=== PATIENT | female | born 1960 | race Caucasian/White ===

== ENCOUNTER 2020-02-20 13:51 | Inpatient (IN) | payer OTHER ==
[~2020-02-20] VITALS: Ht 170.2 cm; Wt 95.7 kg
[~2020-02-20 13:51] MED LIST: GLIPIZIDE10 MG PO; LISINOPRIL20 MG ORAL; METFORMIN HCL500 M1 ORAL; METFORMIN HYD1000 GM MC; ONDANSETRON ODT4 MG BC; PROTONIX40 M2 GT
[2020-02-20 14:15] LABS: BASOPHILS % (AUTO) 0.8 % (0.0-2.0); EOSINOPHILS % (AUTO) 0.4 % (0.0-3.0); HEMATOCRIT 45.6 % (37.0-47.0); HEMOGLOBIN 15.2 G/DL (12.0-16.0); LYMPHOCYTES % (AUTO) 26.3 % (20.0-45.0); MEAN CORPUSCULAR VOLUME 87 FL (80-99); MONOCYTES % (AUTO) 6.1 % (1.0-10.0); NEUTROPHILS % (AUTO) 66.5 % (45.0-75.0); PLATELET COUNT 405 K/UL (150-450); RED BLOOD COUNT 5.22 M/UL (4.20-5.40); RED CELL DISTRIBUTION WIDTH 12.1 % (11.6-14.8); WHITE BLOOD COUNT 8.5 K/UL (4.8-10.8)
[2020-02-20] MEDS ORDERED: DiphenhydrAMINE 50mg/ml Inj IVP ONE (14:15)
[2020-02-20] MEDS ORDERED: Metoclopramide 10mg/2ml Inj IVP ONE (14:15)
[2020-02-20] MEDS ORDERED: Morphine Sulfate 2mg/ml Inj(IV/IM USE ONLY) IVP ONE (14:15)
--- NOTE | 2020-02-20 14:18 | Emergency Room Report ---
History of Present Illness General Chief Complaint: Nausea, Vomiting, and Diarrhea Source: Patient Present Illness HPI The patient returns to the emergency department with vomiting and diarrhea and abdominal pain. She rates the pain 7/10 at this time. She is passing some blood in her stool. She denies any coffee grounds or hematemesis 2 tabs TID X 2 days, 1 tab TID X 2 days, 1 tab BID X 2 days, 1 tab QD X 2 days she feels dehydrated. She states she has been vomiting and had loose stools since she was discharged on the . She has been taking Zofran and it has not helped. She has not been monitoring her blood sugars. She feels weak and dehydrated. The patient was admitted February 09 for similar complaints. She is a non-insulin- dependent diabetic and had a metabolic acidosis, leukocytosis and hyperglycemia. Her symptoms improved and she was discharged on February 12. Discharge diagnoses: Diabetes mellitus [id number] Possible mild DKA Dehydration Abdominal pain with nausea and vomiting Elevated blood pressure Leukocytosis -improved CT scan 02/10 revealed: Impression: Equivocal mild wall thickening of the mid sigmoid. This could indicate focal colitis if real. No acute process otherwise. Colonic diverticulosis Mild fatty liver Incidental findings of basilar pulmonary atelectasis and mild lumbar levoscoliosis and degenerative spondylosis No fevers, chills, sore throat, chest pain, palpitations, dysuria, shortness of breath, joint pain, rashes, depression, anxiety, visual changes, headache. 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 Patient History Past Medical History: see triage record Social History: Denies: smoking Social History Narrative lives by self Last Menstrual Period: NA Reviewed Nursing Documentation: PMH: Agreed; PSxH: Agreed Nursing Documentation-PM Past Medical History: No Stated History Hx Cardiac Problems: No Hx Diabetes: Yes - recently diagnosed Hx Cancer: No Hx Gastrointestinal Problems: Yes Hx Neurological Problems: No Review of Systems All Other Systems: negative except mentioned in HPI Physical Exam Vital Signs Date Time Temp Pulse Resp B/P (MAP) Pulse Ox O2 Delivery O2 Flow Rate FiO2 7/11/20 13:55 98.6 99 17 156/104 (121) 98 Room Air Sp02 EP Interpretation: reviewed, normal General Appearance: no apparent distress, GCS 15, non-toxic, other - ill appearing Head: normocephalic Eyes: bilateral eye normal inspection, bilateral eye PERRL, bilateral eye EOMI ENT: moist mucus membranes Neck: supple Respiratory: lungs clear, normal breath sounds Cardiovascular #1: regular rate, rhythm Cardiovascular #2: 2+ radial (R) Gastrointestinal: normal inspection, normal bowel sounds, no mass, non- distended, no guarding, no rebound, tenderness - reported Genitourinary: no CVA tenderness Musculoskeletal: back normal, normal range of motion, gait/station normal Neurologic: alert, oriented x3, grossly normal Psychiatric: depressed affect Skin: no rash, warm/dry Medical Decision Making Diagnostic Impression: Primary Impression: Intractable vomiting Qualified Codes: R11.2 - Nausea with vomiting, unspecified Additional Impressions: Dehydration Type 2 diabetes mellitus Qualified Codes: E11.69 - Type 2 diabetes mellitus with other specified complication ER Course Patient presents with persistent vomiting with daily history of diabetes. Differential includes diabetic ketoacidosis, gastroenteritis, colitis, electrolyte imbalance amongst others. She has a nonsurgical abdomen at the moment. Evaluation with EKG, chest x-ray and labs. Treatment with IV hydration , Reglan, Benadryl Pepcid and morphine. Repeat abdominal exams indicated. Complicated patient with comorbidities. EKG sinus rhythm with prolonged QT interval. Accu-Chek 156. Normal white count. No acidosis. Urinalysis clear Patient somewhat improved with treatment. Still feels nauseated. Poorly tolerating oral intake. Abdomen soft. Decreased bowel sounds. Patient admitted for repeat evaluations, serial abdominal exams and IV hydration. Suspect diabetic gastroparesis as a significant contributor to presentation. Discussed with Dr. Villarreal. Laboratory Tests Test 02/20/20 14:04 02/20/20 15:00 White Blood Count 8.5 K/UL (4.8-10.8) Red Blood Count 5.22 M/UL (4.20-5.40) Hemoglobin 15.2 G/DL (12.0-16.0) Hematocrit 45.6 % (37.0-47.0) Mean Corpuscular Volume 87 FL (80-99) Mean Corpuscular Hemoglobin 29.1 PG (27.0-31.0) Mean Corpuscular Hemoglobin Concent 33.3 G/DL (32.0-36.0) Red Cell Distribution Width 12.1 % (11.6-14.8) Platelet Count 405 K/UL (150-450) Mean Platelet Volume 6.6 FL (6.5-10.1) Neutrophils (%) (Auto) 66.5 % (45.0-75.0) Lymphocytes (%) (Auto) 26.3 % (20.0-45.0) Monocytes (%) (Auto) 6.1 % (1.0-10.0) Eosinophils (%) (Auto) 0.4 % (0.0-3.0) Basophils (%) (Auto) 0.8 % (0.0-2.0) Prothrombin Time 11.5 SEC (9.30-11.50) Prothrombin Time INR 1.0 (0.9-1.1) Activated Partial Thromboplast Time 24 SEC (23-33) Sodium Level 138 MMOL/L (136-145) Potassium Level 3.8 MMOL/L (3.5-5.1) Chloride Level 101 MMOL/L (98-107) Carbon Dioxide Level 22 MMOL/L (21-32) Anion Gap 15 mmol/L (5-15) Blood Urea Nitrogen 13 mg/dL (7-18) Creatinine 1.0 MG/DL (0.55-1.30) Estimated Glomerular Filtration Rate 57.1 mL/min (>60) Glucose Level 155 MG/DL (74-106) H Calcium Level 9.1 MG/DL (8.5-10.1) Ferritin 93 NG/ML (8-388) Total Bilirubin 0.6 MG/DL (0.2-1.0) Aspartate Amino Transferase (AST) 15 U/L (15-37) Alanine Aminotransferase (ALT) 32 U/L (12-78) Alkaline Phosphatase 90 U/L (46-116) Lactate Dehydrogenase 248 U/L (81-234) H Troponin I 0.002 ng/mL (0.000-0.056) C-Reactive Protein, Quantitative 1.9 mg/dL (0.00-0.90) H Total Protein 7.1 G/DL (6.4-8.2) Albumin 3.7 G/DL (3.4-5.0) Globulin 3.4 g/dL Albumin/Globulin Ratio 1.1 (1.0-2.7) Lipase 178 U/L (73-393) Urine Color Yellow Urine Appearance Slightly cloudy Urine pH 9 (4.5-8.0) Urine Specific [place] 1.015 (1.005-1.035) Urine Protein 2+ (NEGATIVE) H Urine Glucose (UA) 2+ (NEGATIVE) H Urine Ketones 2+ (NEGATIVE) H Urine Blood Negative (NEGATIVE) Urine Nitrite Negative (NEGATIVE) Urine Bilirubin Negative (NEGATIVE) Urine Urobilinogen 1 MG/DL (0.0-1.0) H Urine Leukocyte Esterase 1+ (NEGATIVE) H Urine RBC 0-2 /HPF (0 - 2) Urine WBC 2-4 /HPF (0 - 2) Urine Squamous Epithelial Cells Many /LPF (NONE/OCC) H Urine Bacteria Few /HPF (NONE) EKG Diagnostic Results Rate: normal Rhythm: NSR ST Segments: no acute changes - prolonged QT Rhythm Strip Diag. Results EP Interpretation: yes Rhythm: NSR, no PVC's, no ectopy Chest X-Ray Diagnostic Results Chest X-Ray Diagnostic Results : Chest X-Ray Ordered: Yes # of Views/Limited/Complete: 1 View Indication: Other EP Interpretation: Yes Interpretation: no consolidation, no effusion, no pneumothorax, other - scarring Impression: No acute disease Electronically Signed by: Electronically signed by Catarino Mackey MD Last Vital Signs Date Time Temp Pulse Resp B/P (MAP) Pulse Ox O2 Delivery O2 Flow Rate FiO2 02/21/20 00:00 98.3 87 20 145/74 (97) 98 02/20/20 21:00 Room Air Status: improved Disposition: ADMITTED INPATIENT Condition: Serious Catarino Mackey MD Feb 20, 2020 14:17
[2020-02-20 14:23] LABS: ANION GAP 15 mmol/L (5-15); BLOOD UREA NITROGEN 13 mg/dL (7-18); CALCIUM 9.1 MG/DL (8.5-10.1); CARBON DIOXIDE 22 MMOL/L (21-32); CHLORIDE 101 MMOL/L (98-107); POTASSIUM 3.8 MMOL/L (3.5-5.1); SODIUM 138 MMOL/L (136-145)
[2020-02-20 14:35] VITALS: BP 156/104
[2020-02-20 14:38] LABS: ALANINE AMINOTRANSFERASE 32 U/L (12-78); ALBUMIN 3.7 G/DL (3.4-5.0); ALBUMIN/GLOBULIN RATIO 1.1 (1.0-2.7); ALKALINE PHOSPHATASE 90 U/L (46-116); ASPARTATE AMINO TRANSFERASE 15 U/L (15-37); BILIRUBIN,TOTAL 0.6 MG/DL (0.2-1.0); FERRITIN 93 NG/ML (8-388); LACTATE DEHYDROGENASE 248 U/L (81-234)
--- NOTE | 2020-02-20 14:47 | Diagnostic Imaging Report ---
EXAM: XR Chest, 1 View CLINICAL HISTORY: ABD PAIN TECHNIQUE: Frontal view of the chest. COMPARISON: No relevant prior studies available. FINDINGS: Lungs: Unremarkable. No consolidation. Pleural space: Unremarkable. No pneumothorax. Heart: Unremarkable. No cardiomegaly. Mediastinum: Unremarkable. Bones/joints: Unremarkable. IMPRESSION: No acute process.
[2020-02-20 15:17] LABS: APPEARANCE,URINE SLIGHTLY CLOUDY; BILIRUBIN, URINE NEGATIVE (NEGATIVE); GLUCOSE, URINE (UA) 2+ (NEGATIVE); KETONES,URINE 2+ (NEGATIVE); LEUKOCYTE ESTERASE ,URINE 1+ (NEGATIVE); NITRITE,URINE NEGATIVE (NEGATIVE); PH,URINE 9 (4.5-8.0); PROTEIN,URINE 2+ (NEGATIVE); UROBILINOGEN,URINE 1 MG/DL (0.0-1.0)
[2020-02-20 15:22] LABS: COLOR,URINE YELLOW
[2020-02-20 20:00] VITALS: BP 138/81
[2020-02-20] MEDS: Heparin 5000 units/ml inj SUBQ SCH (20:54)
[2020-02-20] MEDS: NovoLOG Insulin Flexpen SUBQ SCH (20:58)
[2020-02-21] VITALS (11 sets, daily range): BP systolic 144–186; BP diastolic 74–123
[2020-02-21] MEDS: Metoclopramide 10mg/2ml Inj IVP PRN (03:59)
[2020-02-21] MEDS: NovoLOG Insulin Flexpen SUBQ SCH ×4 (06:09→21:00)
[2020-02-21] MEDS ORDERED: metFORMIN 500mg tab ORAL SCH (06:30)
[2020-02-21] MEDS: Heparin 5000 units/ml inj SUBQ SCH ×2 (08:42→20:20)
[2020-02-21] MEDS: GlipiZIDE 5mg tab ORAL SCH (08:48)
[2020-02-21] MEDS: metFORMIN 500mg tab ORAL SCH ×2 (08:48→17:04)
[2020-02-21] MEDS ORDERED: Lisinopril 20mg tab ORAL SCH (09:00)
[2020-02-21] MEDS: HydrALAZINE 50mg tab ORAL SCH ×2 (13:07→17:03)
[2020-02-21] MEDS ORDERED: Zolpidem 5mg tab ORAL PRN (23:00)
[2020-02-22] VITALS (7 sets, daily range): BP systolic 123–163; BP diastolic 65–115
--- NOTE | 2020-02-22 02:15 | History and Physical Report ---
DATE OF ADMISSION: 02/20/2020 CHIEF COMPLAINT: Nausea and vomiting. HISTORY OF PRESENT ILLNESS: The patient is a 59-year-old female. She has history of hypertension with diabetes, was previously admitted for nausea and vomiting. She was diagnosed with osteomyelitis and discharged home back to the ER. She is now admitted for further evaluation and care. PAST MEDICAL HISTORY: As above. PAST SURGICAL HISTORY: None. CURRENT MEDICATIONS: Reconciled and reviewed. ALLERGIES: None. FAMILY HISTORY: Noncontributory. SOCIAL HISTORY: There is no known history of tobacco, ethanol, or drugs. PHYSICAL EXAMINATION: VITAL SIGNS: Temperature 98, pulse 83, respirations 24, blood pressure 178/107. GENERAL: The patient is a well-developed female. She appears mildly ill. HEENT: Pupils are equal, round, and reactive to light. Sclerae anicteric. Oropharynx clear. NECK: Supple. HEART: Regular rate and rhythm. LUNGS: Clear. ABDOMEN: Soft, nontender, nondistended. EXTREMITIES: No clubbing, cyanosis, or edema. LABORATORY DATA: UA was clear. White count 8, hemoglobin 15. Sodium 138, potassium 3.8, BUN 13, creatinine 1. Lipase was normal. Troponin was negative. ASSESSMENT: This is a pleasant 59-year-old female with hypertension, diabetes, admitted with complaints of recurrent nausea and vomiting, unclear etiology, possibly secondary to persistent gastroenteritis and/or possible diabetic gastroparesis. PLAN: 1. IV Reglan. 2. Antiemetics. 3. IV fluids. 4. Continue diabetic regimen. Rashi Villarreal M.D. DR: Darek JOB#: [id number] CC:
[2020-02-22] MEDS: NovoLOG Insulin Flexpen SUBQ SCH ×4 (06:18→21:00)
--- NOTE | 2020-02-22 07:41 | General Progress Note ---
Assessment/Plan Problem List: (1) Intractable vomiting ICD Codes: R11.10 - Vomiting, unspecified SNOMED: 365653046 Qualifiers: Qualified Codes: R11.2 - Nausea with vomiting, unspecified (2) Dehydration ICD Codes: E86.0 - Dehydration SNOMED: 88557007 (3) Type 2 diabetes mellitus ICD Codes: E11.9 - Type 2 diabetes mellitus without complications SNOMED: 63123300 Qualifiers: Qualified Codes: E11.69 - Type 2 diabetes mellitus with other specified complication (4) Nausea, vomiting, and diarrhea ICD Codes: R11.2 - Nausea with vomiting, unspecified; R19.7 - Diarrhea, unspecified SNOMED: 3228439 (5) Hypertension ICD Codes: I10 - Essential (primary) hypertension SNOMED: 69447717 Status: stable Assessment/Plan: dc metformin- ?causing nausea increase bp meds ivf antiemetics no narcotics reglan Subjective ROS Limited/Unobtainable: No Constitutional: Reports: no symptoms HEENT: Reports: no symptoms Cardiovascular: Reports: no symptoms Respiratory: Reports: no symptoms Gastrointestinal/Abdominal: Reports: nausea Genitourinary: Reports: no symptoms Neurologic/Psychiatric: Reports: no symptoms Endocrine: Reports: no symptoms Hematologic/Lymphatic: Reports: no symptoms Allergies: Uncoded Allergies: rice, oatmeal, cod (Allergy, Intermediate, 02/12/20) patient vomits after ingestion All Systems: reviewed and negative except above Subjective decreased nausea. no vomiting. +abd pain. BS stable. on ivf Objective Last 24 Hour Vital Signs Date Time Temp Pulse Resp B/P (MAP) Pulse Ox O2 Delivery O2 Flow Rate FiO2 02/22/20 04:51 163/115 02/22/20 04:00 98.4 88 20 163/115 (131) 98 02/22/20 00:00 99.0 69 21 144/93 (110) 96 02/21/20 21:00 Room Air 02/21/20 20:00 98.4 100 24 163/96 (118) 97 02/21/20 19:04 97 144/93 (110) 02/21/20 17:03 167/93 02/21/20 17:02 167/93 02/21/20 16:30 89 167/93 (117) 02/21/20 16:00 99.0 83 21 186/97 (126) 96 02/21/20 13:07 164/100 02/21/20 13:00 92 160/92 (114) 02/21/20 12:00 99.0 86 22 176/117 (136) 99 02/21/20 11:32 Room Air 02/21/20 10:53 180/117 02/21/20 09:30 83 168/100 (122) 02/21/20 08:43 163/123 02/21/20 08:30 82 160/123 (135) 02/21/20 08:00 96.8 83 24 178/107 (130) 97 Intake and Output 02/21/20 02/22/20 19:00 07:00 Intake Total 2100 ml 1140 ml Balance 2100 ml 1140 ml Intake Oral 40 ml IV Total 1100 ml 1100 ml Other 1000 ml # Voids 2 Height (Feet): 5 Height (Inches): 7.00 Weight (Pounds): 220 General Appearance: WD/WN, alert Neck: supple Cardiovascular: regular rhythm Respiratory/Chest: lungs clear Abdomen: normal bowel sounds, non tender Edema: no edema noted Arm (L), no edema noted Arm (R), no edema noted Leg (L), no edema noted Leg (R), no edema noted Pedal (L), no edema noted Pedal (R), no edema noted Generalized Rashi Villrareal MD Feb 22, 2020 07:41
[2020-02-22] MEDS: Heparin 5000 units/ml inj SUBQ SCH (08:58)
[2020-02-22] MEDS: HydrALAZINE 50mg tab ORAL SCH ×3 (09:01→17:35)
[2020-02-22] MEDS: Lisinopril 20mg tab ORAL SCH ×2 (09:02→17:35)
[2020-02-22] MEDS: GlipiZIDE 5mg tab ORAL SCH (09:02)
--- NOTE | 2020-02-22 09:56 | General Progress Note ---
Assessment/Plan Status: stable Assessment/Plan: Assessment - Initial presentation with N/V, diarrhea, and abd pain - but now improved, tolerating PO, no vomiting - lab tests and recent CT negative Recommendations - conservative follow up for now - check stool cultures - await UGI / SBFT - no plans for endoscopy at this time, unless symptoms escalate Thank you Monica Sweeney MD Subjective Allergies: Uncoded Allergies: rice, oatmeal, cod (Allergy, Intermediate, 02/12/20) patient vomits after ingestion Objective Last 24 Hour Vital Signs Date Time Temp Pulse Resp B/P (MAP) Pulse Ox O2 Delivery O2 Flow Rate FiO2 02/22/20 09:02 150/96 02/22/20 09:01 150/96 02/22/20 04:51 163/115 02/22/20 04:00 98.4 88 20 163/115 (131) 98 02/22/20 00:00 99.0 69 21 144/93 (110) 96 02/21/20 21:00 Room Air 02/21/20 20:00 98.4 100 24 163/96 (118) 97 02/21/20 19:04 97 144/93 (110) 02/21/20 17:03 167/93 02/21/20 17:02 167/93 02/21/20 16:30 89 167/93 (117) 02/21/20 16:00 99.0 83 21 186/97 (126) 96 02/21/20 13:07 164/100 02/21/20 13:00 92 160/92 (114) 02/21/20 12:00 99.0 86 22 176/117 (136) 99 02/21/20 11:32 Room Air 02/21/20 10:53 180/117 Intake and Output 02/21/20 02/22/20 19:00 07:00 Intake Total 2100 ml 1140 ml Balance 2100 ml 1140 ml Intake Oral 40 ml IV Total 1100 ml 1100 ml Other 1000 ml # Voids 2 Height (Feet): 5 Height (Inches): 7.00 Weight (Pounds): 220 Monica Sweeney MD Feb 22, 2020 09:56
--- NOTE | 2020-02-22 16:23 | Diagnostic Imaging Report ---
Indication: Abdominal pain Technique: Patient given oral thin liquid barium. Serial overhead images obtained of the abdomen for a total 4 hours. Total of 12 images obtained. No fluoroscopy was utilized and therefore no fluoroscopy time is available Comparison: none Findings: Skiver Machine Operator film demonstrates some residual contrast in the distal colon from prior abdomen pelvis CT scan. Bowel gas pattern is unremarkable. There are degenerative changes of the lower lumbar spine. There are numerous phleboliths in the left side of the pelvis. There is reasonably brisk exit of contrast from the stomach into the small bowel. Small bowel is normal in caliber, within normal mucosal fold pattern. No focal filling defects or other focal abnormality demonstrated. There is progressive forward transit of contrast. Contrast is seen within the cecum, appendix, and proximal ascending colon at 4 hours. Impression: Normal small bowel study. No evidence of obstruction, mucosal abnormality, or filling defect
[2020-02-22] MEDS: Metoclopramide 10mg/2ml Inj IVP PRN (17:05)
[2020-02-22] MEDS ORDERED: Omnipaque-300 100ml vial INJ PRN (18:45)
--- NOTE | 2020-02-22 20:24 | Diagnostic Imaging Report ---
EXAM: CT Chest With Intravenous Contrast CLINICAL HISTORY: PE TECHNIQUE: Axial computed tomography images of the chest with intravenous contrast. CTDI is 9.9 mGy and DLP is 370 mGy-cm. One or more of the following dose reduction techniques were used: automated exposure control, adjustment of the mA and/or kV according to patient size, use of iterative reconstruction technique. COMPARISON: None FINDINGS: Lungs: There is no confluent airspace disease. There is probable dependent atelectasis. No definite pulmonary infarct is identified. Pleural space: There are no pleural effusions or pneumothoraces. Heart: Unremarkable. No cardiomegaly. No significant pericardial effusion. Bones/joints: Unremarkable. No acute fracture. No dislocation. Soft tissues: Unremarkable. Vasculature: There is no evidence of aortic dissection or intramural hematoma. Thrombus is seen within the bilateral lower lobe segmental pulmonary arteries. Lymph nodes: Unremarkable. No enlarged lymph nodes. Stomach and bowel: Nonspecific hyperattenuation is seen within the duodenal lumen. Underlying ulcer cannot be excluded. IMPRESSION: 1. There are bilateral segmental pulmonary emboli within the lower lobe pulmonary arteries. There is no definite pulmonary infarct or evidence of right heart strain. 2. Nonspecific hyperattenuation is seen within the duodenal lumen. A bleeding ulcer cannot be excluded.
[2020-02-22] MEDS ORDERED: Heparin 25,000u/D5W 500ml 500 ML IV SCH ×2 (21:00→21:45)
[2020-02-22] MEDS ORDERED: Heparin 5000 units/ml inj IV ONE (21:00)
[2020-02-22] MEDS ORDERED: Heparin 5000 units/ml inj IV SCH (21:45)
[2020-02-22] MEDS ORDERED: Zolpidem 5mg tab ORAL PRN (22:00)
[2020-02-23] VITALS: BP 144/79
[2020-02-23] MEDS ORDERED: Metoclopramide 10mg/2ml Inj IVP PRN (01:00)
[2020-02-23 04:00] VITALS: BP 134/72
[2020-02-23] MEDS: Metoprolol Tartrate 50mg tab ORAL SCH ×3 (04:18→21:20)
--- NOTE | 2020-02-23 04:29 | Consultation ---
DATE OF CONSULTATION: 02/22/2020 GASTROENTEROLOGY CONSULTATION CHIEF COMPLAINT: I was asked to see this patient by Dr. Rashi Villarreal for evaluation of gastrointestinal symptoms. HISTORY OF PRESENT ILLNESS: The patient is a 59-year-old woman with history of diabetes and hypertension, who comes to the hospital due to nausea with vomiting, abdominal pain for about a week. She has had some loose stools. She has been admitted and observed overnight, but she feels much better this morning. Her diarrhea and her vomiting have resolved. She has been noted to have an upper GI and small bowel follow-through, which is pending at the time of my evaluation this morning. She was seen previously on 19 February for similar complaints and at that time, CT scan showed some thickening of the sigmoid colon. She also had elevated white count, which is now resolved. PAST MEDICAL HISTORY: History of diabetes and hypertension. ALLERGIES: None. FAMILY HISTORY: Noncontributory. SOCIAL HISTORY: The patient does not smoke or drink alcohol. REVIEW OF SYSTEMS: Otherwise negative. PHYSICAL EXAMINATION: GENERAL: A pleasant white woman seen in her room. HEENT: Normocephalic and atraumatic. Sclerae anicteric. Oropharynx clear. NECK: Supple. CHEST: Clear to auscultation. CARDIOVASCULAR: Revealed a regular rate. ABDOMEN: Soft, nontender, and nondistended. Good bowel sounds. EXTREMITIES: Revealed no edema. LABORATORY DATA: Noted. ASSESSMENT: This patient presents with nausea, vomiting, and abdominal pain, which have all subsided. As such, there may have been mild gastroenteritis. The patient has been managed conservatively. As part of the workup, an upper GI with small bowel follow-through has been ordered, which would be followed up, and cultures to be done to rule out infectious pathologies. I have given the patient a course of laxatives to check for occult blood. Thank you for asking me to participate in the care of this patient. Monica Sweeney M.D. DR: DANNY JOB#: [id number] CC: GABO
--- NOTE | 2020-02-23 06:00 | Consultation ---
DATE OF CONSULTATION: 02/22/2020 CARDIOLOGY CONSULTATION REASON FOR CONSULTATION: Tachycardia. HISTORY OF PRESENT ILLNESS: This 59-year-old female was admitted to the hospital with nausea and vomiting two days ago. She has a history of osteomyelitis and was recently hospitalized with therapy initiated. She has developed tachycardia and shortness of breath today. She had an urgent lung scan, which was positive for pulmonary emboli. PAST MEDICAL HISTORY: Hypertension, type 2 diabetes mellitus, and osteomyelitis. MEDICATIONS: Reviewed. ALLERGIES: None. FAMILY HISTORY: Noncontributory. SOCIAL HISTORY: Negative for smoking, alcohol, or substance abuse. REVIEW OF SYSTEMS: She is not on steroids or estrogen replacement and there is no history of hypercoagulable state. PHYSICAL EXAMINATION: VITAL SIGNS: Blood pressure 122/65, pulse 131, respiratory rate 19, afebrile. NECK: Jugular venous pressure elevated. LUNGS: Clear. Accessory muscle use noticed. CARDIAC: Regular rhythm. Rapid rate. Normal S1, S2. ABDOMEN: Soft. EXTREMITIES: No edema. LABORATORY DATA: Troponin 0.071. IMPRESSION: 1. Acute pulmonary embolus. 2. Acute myocardial ischemia, likely right-sided. 3. Secondary sinus tachycardia. PLAN: 1. Cardiac monitoring. 2. Heparinization. 3. Beta-blockade. 4. Echocardiogram to evaluate right heart and pulmonary artery systolic pressures. Catarino Dennis M.D. DR: Maria De Jesus JOB#: [id number] CC:
[2020-02-23 06:55] LABS: EOSINOPHILS % (AUTO) 0.4 % (0.0-3.0); HEMATOCRIT 41.5 % (37.0-47.0); LYMPHOCYTES % (AUTO) 34.4 % (20.0-45.0); MEAN CORPUSCULAR VOLUME 88 FL (80-99); MONOCYTES % (AUTO) 6.5 % (1.0-10.0); NEUTROPHILS % (AUTO) 57.7 % (45.0-75.0); PLATELET COUNT 398 K/UL (150-450); RED BLOOD COUNT 4.73 M/UL (4.20-5.40); RED CELL DISTRIBUTION WIDTH 12.5 % (11.6-14.8); WHITE BLOOD COUNT 12.3 K/UL (4.8-10.8)
[2020-02-23 07:35] LABS: ALANINE AMINOTRANSFERASE 25 U/L (12-78); ALBUMIN 3.3 G/DL (3.4-5.0); ALBUMIN/GLOBULIN RATIO 1.2 (1.0-2.7); ALKALINE PHOSPHATASE 76 U/L (46-116); ANION GAP 15 mmol/L (5-15); ASPARTATE AMINO TRANSFERASE 19 U/L (15-37); BILIRUBIN,TOTAL 0.4 MG/DL (0.2-1.0); BLOOD UREA NITROGEN 15 mg/dL (7-18); CALCIUM 8.5 MG/DL (8.5-10.1); CARBON DIOXIDE 19 MMOL/L (21-32); CHLORIDE 103 MMOL/L (98-107); CREATININE 0.8 MG/DL (0.55-1.30); POTASSIUM 3.2 MMOL/L (3.5-5.1); SODIUM 137 MMOL/L (136-145)
[2020-02-23 08:00] VITALS: BP 164/84
[2020-02-23] MEDS ORDERED: Heparin 5000 units/ml inj IV SCH ×2 (08:00→15:30)
[2020-02-23] MEDS ORDERED: Heparin 25,000u/D5W 500ml 500 ML IV SCH ×2 (08:00→15:30)
[2020-02-23] MEDS: HydrALAZINE 50mg tab ORAL SCH ×3 (08:21→17:28)
[2020-02-23] MEDS: GlipiZIDE 5mg tab ORAL SCH (08:21)
[2020-02-23] MEDS: Lisinopril 20mg tab ORAL SCH ×2 (08:21→17:28)
[2020-02-23] MEDS: NovoLOG Insulin Flexpen SUBQ SCH ×3 (11:30→21:00)
[2020-02-23 12:00] VITALS: BP 135/69
[2020-02-23 16:00] VITALS: BP 146/72
--- NOTE | 2020-02-23 17:02 | General Progress Note ---
Assessment/Plan Problem List: (1) Intractable vomiting ICD Codes: R11.10 - Vomiting, unspecified SNOMED: 602695974 Qualifiers: Qualified Codes: R11.2 - Nausea with vomiting, unspecified (2) Dehydration ICD Codes: E86.0 - Dehydration SNOMED: 95156365 (3) Type 2 diabetes mellitus ICD Codes: E11.9 - Type 2 diabetes mellitus without complications SNOMED: 97322400 Qualifiers: Qualified Codes: E11.69 - Type 2 diabetes mellitus with other specified complication (4) Nausea, vomiting, and diarrhea ICD Codes: R11.2 - Nausea with vomiting, unspecified; R19.7 - Diarrhea, unspecified SNOMED: 3948621 (5) Hypertension ICD Codes: I10 - Essential (primary) hypertension SNOMED: 54716183 Status: stable Assessment/Plan: heparin drip antiemetics pain rx PPI monitor for nausea/vomiting Subjective ROS Limited/Unobtainable: No Constitutional: Reports: malaise, weakness HEENT: Reports: no symptoms Cardiovascular: Reports: no symptoms Respiratory: Reports: no symptoms Gastrointestinal/Abdominal: Reports: no symptoms, nausea Neurologic/Psychiatric: Reports: no symptoms Endocrine: Reports: no symptoms Hematologic/Lymphatic: Reports: no symptoms Allergies: Uncoded Allergies: rice, oatmeal, cod (Allergy, Intermediate, 02/12/20) patient vomits after ingestion All Systems: reviewed and negative except above Subjective Developed tachycardia last night. Sent for CT angios that revealed bilateral lower lobe subsegmental pulmonary emboli. Started on heparin drip. Transfer to a monitored bed. Currently no chest pain or shortness of breath. Nausea and vomiting feel better today. Objective Last 24 Hour Vital Signs Date Time Temp Pulse Resp B/P (MAP) Pulse Ox O2 Delivery O2 Flow Rate FiO2 02/23/20 16:00 101.3 96 18 146/72 (96) 95 02/23/20 12:13 125/52 02/23/20 12:00 94 02/23/20 12:00 97.9 85 18 135/69 (91) 99 02/23/20 08:53 Room Air 02/23/20 08:52 97.3 02/23/20 08:22 120 164/84 02/23/20 08:21 164/84 02/23/20 08:21 164/84 02/23/20 08:00 101.5 120 18 164/84 (110) 96 02/23/20 08:00 82 02/23/20 04:18 100 147/75 02/23/20 04:00 100 02/23/20 04:00 98.1 76 19 134/72 (92) 98 02/23/20 00:00 103 02/23/20 00:00 100.6 110 19 144/79 (100) 95 02/22/20 21:00 Room Air 02/22/20 20:00 115 02/22/20 20:00 100.6 108 19 147/75 (99) 95 02/22/20 18:44 97.2 131 19 123/65 (84) 97 02/22/20 17:35 140/72 02/22/20 17:35 140/72 02/22/20 17:30 97.2 Intake and Output 02/22/20 02/23/20 19:00 07:00 Intake Total 800 ml 500 ml Balance 800 ml 500 ml Intake Oral 800 ml 500 ml # Voids 6 1 Laboratory Tests 02/22/20 17:02: POC Whole Blood Glucose 93 02/22/20 19:00: Troponin I 0.071H, Thyroid Stimulating Hormone (TSH) 1.606 02/22/20 21:50: Activated Partial Thromboplast Time 25 02/22/20 23:01: POC Whole Blood Glucose [Pending] 02/23/20 05:26: POC Whole Blood Glucose 113H 02/23/20 06:19: White Blood Count 12.3H, Red Blood Count 4.73, Hemoglobin 14.0, Hematocrit 41.5 , Mean Corpuscular Volume 88, Mean Corpuscular Hemoglobin 29.6, Mean Corpuscular Hemoglobin Concent 33.7, Red Cell Distribution Width 12.5, Platelet Count 398, Mean Platelet Volume 6.1L, Neutrophils (%) (Auto) 57.7, Lymphocytes ( %) (Auto) 34.4, Monocytes (%) (Auto) 6.5, Eosinophils (%) (Auto) 0.4, Basophils (%) (Auto) 1.0, Activated Partial Thromboplast Time 52H, Sodium Level 137, Potassium Level 3.2L, Chloride Level 103, Carbon Dioxide Level 19L, Anion Gap 15 , Blood Urea Nitrogen 15, Creatinine 0.8, Estimat Glomerular Filtration Rate > 60, Glucose Level 123H, Calcium Level 8.5, Total Bilirubin 0.4, Aspartate Amino Transf (AST/SGOT) 19, Alanine Aminotransferase (ALT/SGPT) 25, Alkaline Phosphatase 76, Troponin I 0.355H, Pro-B-Type Natriuretic Peptide 864H, Total Protein 6.0L, Albumin 3.3L, Globulin 2.7, Albumin/Globulin Ratio 1.2 02/23/20 14:40: Activated Partial Thromboplast Time 38H Height (Feet): 5 Height (Inches): 7.00 Weight (Pounds): 220 General Appearance: WD/WN, alert Neck: supple Cardiovascular: regular rhythm Respiratory/Chest: chest wall non-tender Abdomen: normal bowel sounds, non tender, soft, no organomegaly Edema: no edema noted Arm (L), no edema noted Arm (R), no edema noted Leg (L), no edema noted Leg (R), no edema noted Pedal (L), no edema noted Pedal (R), no edema noted Generalized Rashi Villarreal MD Feb 23, 2020 17:02
[2020-02-23 20:00] VITALS: BP 119/83
--- NOTE | 2020-02-23 22:49 | General Progress Note ---
Assessment/Plan Status: stable Assessment/Plan: Assessment - Initial presentation with N/V, diarrhea, and abd pain - but now improved, tolerating PO, no vomiting - lab tests and recent CT negative Recommendations - conservative follow up for now - check stool cultures - no plans for endoscopy at this time, unless symptoms escalate Subjective Allergies: Uncoded Allergies: rice, oatmeal, cod (Allergy, Intermediate, 02/12/20) patient vomits after ingestion Subjective above noted feels ok no N/V UGI/SBFT negative Objective Last 24 Hour Vital Signs Date Time Temp Pulse Resp B/P (MAP) Pulse Ox O2 Delivery O2 Flow Rate FiO2 02/23/20 22:27 98.1 02/23/20 21:20 105 119/83 02/23/20 21:00 Room Air 02/23/20 17:28 146/72 02/23/20 17:28 146/72 02/23/20 16:00 91 02/23/20 16:00 101.3 96 18 146/72 (96) 95 02/23/20 12:13 125/52 02/23/20 12:00 94 02/23/20 12:00 97.9 85 18 135/69 (91) 99 02/23/20 08:53 Room Air 02/23/20 08:22 120 164/84 02/23/20 08:21 164/84 02/23/20 08:21 164/84 02/23/20 08:00 101.5 120 18 164/84 (110) 96 02/23/20 08:00 82 02/23/20 04:18 100 147/75 02/23/20 04:00 100 02/23/20 04:00 98.1 76 19 134/72 (92) 98 02/23/20 00:00 103 02/23/20 00:00 100.6 110 19 144/79 (100) 95 Intake and Output 02/22/20 02/23/20 19:00 07:00 Intake Total 800 ml 500 ml Balance 800 ml 500 ml Intake Oral 800 ml 500 ml # Voids 6 1 Laboratory Tests 02/22/20 23:01: POC Whole Blood Glucose [Pending] 02/23/20 05:26: POC Whole Blood Glucose 113H 02/23/20 06:19: White Blood Count 12.3H, Red Blood Count 4.73, Hemoglobin 14.0, Hematocrit 41.5 , Mean Corpuscular Volume 88, Mean Corpuscular Hemoglobin 29.6, Mean Corpuscular Hemoglobin Concent 33.7, Red Cell Distribution Width 12.5, Platelet Count 398, Mean Platelet Volume 6.1L, Neutrophils (%) (Auto) 57.7, Lymphocytes ( %) (Auto) 34.4, Monocytes (%) (Auto) 6.5, Eosinophils (%) (Auto) 0.4, Basophils (%) (Auto) 1.0, Activated Partial Thromboplast Time 52H, Sodium Level 137, Potassium Level 3.2L, Chloride Level 103, Carbon Dioxide Level 19L, Anion Gap 15 , Blood Urea Nitrogen 15, Creatinine 0.8, Estimat Glomerular Filtration Rate > 60, Glucose Level 123H, Calcium Level 8.5, Total Bilirubin 0.4, Aspartate Amino Transf (AST/SGOT) 19, Alanine Aminotransferase (ALT/SGPT) 25, Alkaline Phosphatase 76, Troponin I 0.355H, Pro-B-Type Natriuretic Peptide 864H, Total Protein 6.0L, Albumin 3.3L, Globulin 2.7, Albumin/Globulin Ratio 1.2 02/23/20 14:40: Activated Partial Thromboplast Time 38H 02/23/20 21:09: POC Whole Blood Glucose 114H 02/23/20 21:20: Activated Partial Thromboplast Time > 150*H Height (Feet): 5 Height (Inches): 7.00 Weight (Pounds): 220 Objective WDWN WW NCAT supple CTA RRR abd soft no edema Monica Sweeney MD Feb 23, 2020 22:49
[2020-02-23] MEDS: Heparin 25,000u/D5W 500ml 500 ML IV SCH (23:16)
[2020-02-24] VITALS: BP 160/86
--- NOTE | 2020-02-24 01:40 | Cardiology Progress Note ---
Subjective DATE OF SERVICE: Feb 23, 2020 CT angio revealed bilateral pulmonary emboli Patient still with sinus tachycardia; intermittently febrile 2D Echo reveals mild-mod pulmonary hypertension with no signs of RV infarct. Objective Last 24 Hour Vital Signs Date Time Temp Pulse Resp B/P (MAP) Pulse Ox O2 Delivery O2 Flow Rate FiO2 02/23/20 22:27 98.1 02/23/20 21:20 105 119/83 02/23/20 21:00 Room Air 02/23/20 20:00 101.3 105 26 119/83 (95) 98 02/23/20 17:28 146/72 02/23/20 17:28 146/72 02/23/20 16:00 91 02/23/20 16:00 101.3 96 18 146/72 (96) 95 02/23/20 12:13 125/52 02/23/20 12:00 94 02/23/20 12:00 97.9 85 18 135/69 (91) 99 02/23/20 08:53 Room Air 02/23/20 08:22 120 164/84 02/23/20 08:21 164/84 02/23/20 08:21 164/84 02/23/20 08:00 101.5 120 18 164/84 (110) 96 02/23/20 08:00 82 02/23/20 04:18 100 147/75 02/23/20 04:00 100 02/23/20 04:00 98.1 76 19 134/72 (92) 98 RHYTHM: ST LUNGS: lungs clear bilaterally CARDIAC: rapid rate, tachycardia ABDOMEN: normal bowel sounds, non tender, soft EXTREMITIES: normal range of motion, No edema Laboratory Tests Test 02/23/20 05:26 02/23/20 06:19 02/23/20 14:40 02/23/20 21:09 POC Whole Blood Glucose 113 MG/DL (74-106) H 114 MG/DL (74-106) H White Blood Count 12.3 K/UL (4.8-10.8) H Red Blood Count 4.73 M/UL (4.20-5.40) Hemoglobin 14.0 G/DL (12.0-16.0) Hematocrit 41.5 % (37.0-47.0) Mean Corpuscular Volume 88 FL (80-99) Mean Corpuscular Hemoglobin 29.6 PG (27.0-31.0) Mean Corpuscular Hemoglobin Concent 33.7 G/DL (32.0-36.0) Red Cell Distribution Width 12.5 % (11.6-14.8) Platelet Count 398 K/UL (150-450) Mean Platelet Volume 6.1 FL (6.5-10.1) L Neutrophils (%) (Auto) 57.7 % (45.0-75.0) Lymphocytes (%) (Auto) 34.4 % (20.0-45.0) Monocytes (%) (Auto) 6.5 % (1.0-10.0) Eosinophils (%) (Auto) 0.4 % (0.0-3.0) Basophils (%) (Auto) 1.0 % (0.0-2.0) Activated Partial Thromboplast Time 52 SEC (23-33) H 38 SEC (23-33) H Sodium Level 137 MMOL/L (136-145) Potassium Level 3.2 MMOL/L (3.5-5.1) L Chloride Level 103 MMOL/L (98-107) Carbon Dioxide Level 19 MMOL/L (21-32) L Anion Gap 15 mmol/L (5-15) Blood Urea Nitrogen 15 mg/dL (7-18) Creatinine 0.8 MG/DL (0.55-1.30) Estimat Glomerular Filtration Rate > 60 mL/min (>60) Glucose Level 123 MG/DL (74-106) H Calcium Level 8.5 MG/DL (8.5-10.1) Total Bilirubin 0.4 MG/DL (0.2-1.0) Aspartate Amino Transf (AST/SGOT) 19 U/L (15-37) Alanine Aminotransferase (ALT/SGPT) 25 U/L (12-78) Alkaline Phosphatase 76 U/L (46-116) Troponin I 0.355 ng/mL (0.000-0.056) Pro-B-Type Natriuretic Peptide 864 pg/mL (0-125) H Total Protein 6.0 G/DL (6.4-8.2) L Albumin 3.3 G/DL (3.4-5.0) L Globulin 2.7 g/dL Albumin/Globulin Ratio 1.2 (1.0-2.7) Test 02/23/20 21:20 Activated Partial Thromboplast Time > 150 SEC (23-33) *H Assessment/Plan Assessment/Plan Assessment: 1 Acute pulmonary embolism 2. Sinus tachycardia 3. Pulmonary hypertension 4. Fevers - may be due to above, but need to consider new infection. 5. NIDDM 6. Hypertension/HHD Plan: 1. Full anticoagulation 2. COntinue beta [place] 3. Titrate antiHTN regimen 4. Fever work up 5. Insulin regimen by sliding scale Catarino Dennis MD Feb 24, 2020 01:40
[2020-02-24 04:00] VITALS: BP 137/82
[2020-02-24] MEDS: Heparin 25,000u/D5W 500ml 500 ML IV SCH (05:35)
[2020-02-24] MEDS ORDERED: Heparin 25,000u/D5W 500ml 500 ML IV SCH (06:15)
[2020-02-24] MEDS: NovoLOG Insulin Flexpen SUBQ SCH ×4 (06:30→21:47)
[2020-02-24 08:00] VITALS: BP 161/97
[2020-02-24] MEDS: GlipiZIDE 5mg tab ORAL SCH (08:30)
[2020-02-24] MEDS: Metoprolol Tartrate 50mg tab ORAL SCH ×2 (08:31→21:26)
[2020-02-24] MEDS: Lisinopril 20mg tab ORAL SCH ×2 (08:31→17:20)
[2020-02-24] MEDS: HydrALAZINE 50mg tab ORAL SCH ×3 (08:31→17:20)
[2020-02-24 12:00] VITALS: BP 133/75
[2020-02-24 16:00] VITALS: BP 145/70
--- NOTE | 2020-02-24 16:51 | General Progress Note ---
Assessment/Plan Problem List: (1) Intractable vomiting ICD Codes: R11.10 - Vomiting, unspecified SNOMED: 511482729 Qualifiers: Qualified Codes: R11.2 - Nausea with vomiting, unspecified (2) Dehydration ICD Codes: E86.0 - Dehydration SNOMED: 46726984 (3) Type 2 diabetes mellitus ICD Codes: E11.9 - Type 2 diabetes mellitus without complications SNOMED: 71276885 Qualifiers: Qualified Codes: E11.69 - Type 2 diabetes mellitus with other specified complication (4) Nausea, vomiting, and diarrhea ICD Codes: R11.2 - Nausea with vomiting, unspecified; R19.7 - Diarrhea, unspecified SNOMED: 6560783 (5) Hypertension ICD Codes: I10 - Essential (primary) hypertension SNOMED: 28796788 Status: stable Assessment/Plan: heparin drip- dc start oral anticaog antiemetics pain rx advance diet monitor bs PPI monitor for nausea/vomiting Subjective ROS Limited/Unobtainable: No Constitutional: Reports: no symptoms HEENT: Reports: no symptoms Cardiovascular: Reports: no symptoms Respiratory: Reports: no symptoms Gastrointestinal/Abdominal: Reports: no symptoms Genitourinary: Reports: no symptoms Neurologic/Psychiatric: Reports: no symptoms Endocrine: Reports: no symptoms Hematologic/Lymphatic: Reports: no symptoms Allergies: Uncoded Allergies: rice, oatmeal, cod (Allergy, Intermediate, 02/12/20) patient vomits after ingestion All Systems: reviewed and negative except above Subjective better today. no chest pain or sob. nausea better. BP stable Objective Last 24 Hour Vital Signs Date Time Temp Pulse Resp B/P (MAP) Pulse Ox O2 Delivery O2 Flow Rate FiO2 02/24/20 16:00 98.6 88 18 145/70 (95) 98 02/24/20 14:02 133/75 02/24/20 12:00 99.0 87 20 133/75 (94) 97 02/24/20 12:00 86 02/24/20 08:31 84 161/97 02/24/20 08:31 161/97 02/24/20 08:31 161/97 02/24/20 08:25 Room Air 02/24/20 08:00 98.8 84 18 161/97 (118) 96 02/24/20 08:00 91 02/24/20 04:00 93 7/15/20 04:00 98.1 77 20 137/82 (100) 97 02/24/20 00:00 80 02/24/20 00:00 98.4 75 20 160/86 (110) 94 02/23/20 22:27 98.1 02/23/20 21:20 105 119/83 02/23/20 21:00 Room Air 02/23/20 20:00 102 02/23/20 20:00 101.3 105 26 119/83 (95) 98 02/23/20 17:28 146/72 02/23/20 17:28 146/72 Intake and Output 02/23/20 02/24/20 19:00 07:00 Intake Total 347.899 ml 1283.252 ml Output Total 300 ml Balance 347.899 ml 983.252 ml Intake Oral 300 ml IV Total 47.899 ml 923.252 ml Other 360 ml Output Urine Total 300 ml # Voids 3 Laboratory Tests 02/23/20 21:09: POC Whole Blood Glucose 114H 02/23/20 21:20: Activated Partial Thromboplast Time > 150*H 02/24/20 05:38: Activated Partial Thromboplast Time 99H 02/24/20 06:24: POC Whole Blood Glucose 124H 02/24/20 12:47: Activated Partial Thromboplast Time 83H Height (Feet): 5 Height (Inches): 7.00 Weight (Pounds): 213 Objective General Appearance: WD/WN, alert Neck: supple Cardiovascular: regular rhythm Respiratory/Chest: chest wall non-tender Abdomen: normal bowel sounds, non tender, soft, no organomegaly Edema: no edema noted Arm (L), no edema noted Arm (R), no edema noted Leg (L), no edema noted Leg (R), no edema noted Pedal (L), no edema noted Pedal (R), no edema noted Generalized Rashi Villarreal MD Feb 24, 2020 16:51
[2020-02-24] MEDS: Xarelto 15mg tab ORAL SCH (17:19)
[2020-02-24] MEDS: DULoxetine 30mg cap ORAL SCH (17:20)
[2020-02-24 20:00] VITALS: BP 132/77
--- NOTE | 2020-02-24 22:47 | General Progress Note ---
Assessment/Plan Status: stable Assessment/Plan: Assessment - Initial presentation with N/V, diarrhea, and abd pain - but now improved, tolerating PO, no vomiting - lab tests and recent CT negative Recommendations - conservative follow up for now - check stool cultures - no plans for endoscopy at this time, unless symptoms escalate Subjective Allergies: Uncoded Allergies: rice, oatmeal, cod (Allergy, Intermediate, 02/12/20) patient vomits after ingestion Subjective above noted feels ok no N/V Objective Last 24 Hour Vital Signs Date Time Temp Pulse Resp B/P (MAP) Pulse Ox O2 Delivery O2 Flow Rate FiO2 02/24/20 21:26 95 132/77 02/24/20 17:20 145/70 02/24/20 17:20 145/70 02/24/20 16:00 98 02/24/20 16:00 98.6 88 18 145/70 (95) 98 02/24/20 14:02 133/75 02/24/20 12:00 99.0 87 20 133/75 (94) 97 02/24/20 12:00 86 02/24/20 08:31 84 161/97 02/24/20 08:31 161/97 02/24/20 08:31 161/97 02/24/20 08:25 Room Air 02/24/20 08:00 98.8 84 18 161/97 (118) 96 02/24/20 08:00 91 02/24/20 04:00 93 02/24/20 04:00 98.1 77 20 137/82 (100) 97 02/24/20 00:00 80 02/24/20 00:00 98.4 75 20 160/86 (110) 94 Intake and Output 02/23/20 02/24/20 19:00 07:00 Intake Total 347.899 ml 1283.252 ml Output Total 300 ml Balance 347.899 ml 983.252 ml Intake Oral 300 ml IV Total 47.899 ml 923.252 ml Other 360 ml Output Urine Total 300 ml # Voids 3 Laboratory Tests 02/24/20 05:38: Activated Partial Thromboplast Time 99H 02/24/20 06:24: POC Whole Blood Glucose 124H 02/24/20 12:47: Activated Partial Thromboplast Time 83H Height (Feet): 5 Height (Inches): 7.00 Weight (Pounds): 213 Objective WDWN WW NCAT supple CTA RRR abd soft no edema Monica Sweeney MD Feb 24, 2020 22:47
[2020-02-25] VITALS: BP 153/80
--- NOTE | 2020-02-25 02:45 | Progress Note ---
DATE: 02/24/2020 CARDIOLOGY PROGRESS NOTE SUBJECTIVE: The patient has less shortness of breath today. No chest pain. She has not had any fever spikes. She remains on intravenous anticoagulation. OBJECTIVE: VITAL SIGNS: Blood pressure 145/70, heart rate 95, respirations 18, and temperature max 101.1. LUNGS: Bilateral breath sounds. No wheezing. HEART: Regular rhythm and rate. Normal S1, S2. ABDOMEN: Soft. EXTREMITIES: No edema. IMPRESSION: 1. Pulmonary embolism. 2. Fevers. 3. Sinus tachycardia, recovered. 4. Pulmonary hypertension. 5. Hypertensive heart disease. PLAN: 1. Transition to oral anticoagulation. 2. Advance antihypertensives. 3. Recheck chest x-ray. 4. Complete fever workup. 5. Maintain beta-blockade. Catarino Dennis M.D. DR: JOJO JOB#: [id number] CC:
[2020-02-25 04:00] VITALS: BP 153/87
[2020-02-25] MEDS: NovoLOG Insulin Flexpen SUBQ SCH ×4 (06:26→20:46)
[2020-02-25 06:30] LABS: BASOPHILS % (AUTO) 1.3 % (0.0-2.0); EOSINOPHILS % (AUTO) 1.1 % (0.0-3.0); HEMATOCRIT 42.2 % (37.0-47.0); HEMOGLOBIN 13.8 G/DL (12.0-16.0); LYMPHOCYTES % (AUTO) 39.8 % (20.0-45.0); MEAN CORPUSCULAR VOLUME 89 FL (80-99); MONOCYTES % (AUTO) 6.5 % (1.0-10.0); NEUTROPHILS % (AUTO) 51.3 % (45.0-75.0); PLATELET COUNT 363 K/UL (150-450); RED BLOOD COUNT 4.75 M/UL (4.20-5.40); RED CELL DISTRIBUTION WIDTH 12.6 % (11.6-14.8); WHITE BLOOD COUNT 7.7 K/UL (4.8-10.8)
[2020-02-25 06:49] LABS: ALANINE AMINOTRANSFERASE 30 U/L (12-78); ALBUMIN 3.4 G/DL (3.4-5.0); ALBUMIN/GLOBULIN RATIO 1.3 (1.0-2.7); ALKALINE PHOSPHATASE 69 U/L (46-116); ANION GAP 10 mmol/L (5-15); ASPARTATE AMINO TRANSFERASE 13 U/L (15-37); BILIRUBIN,TOTAL 0.5 MG/DL (0.2-1.0); BLOOD UREA NITROGEN 8 mg/dL (7-18); CARBON DIOXIDE 23 MMOL/L (21-32); CHLORIDE 109 MMOL/L (98-107); CREATININE 0.9 MG/DL (0.55-1.30); POTASSIUM 3.4 MMOL/L (3.5-5.1); SODIUM 142 MMOL/L (136-145)
[2020-02-25 08:00] VITALS: BP 167/77
[2020-02-25] MEDS ORDERED: Imdur 30mg tab ORAL SCH (09:00)
[2020-02-25] MEDS: Metoprolol Tartrate 50mg tab ORAL SCH ×2 (09:42→20:43)
[2020-02-25] MEDS: Xarelto 15mg tab ORAL SCH ×2 (09:43→17:51)
[2020-02-25] MEDS: DULoxetine 30mg cap ORAL SCH (09:43)
[2020-02-25] MEDS: GlipiZIDE 5mg tab ORAL SCH (09:44)
[2020-02-25] MEDS: HydrALAZINE 50mg tab ORAL SCH ×3 (09:44→17:51)
[2020-02-25] MEDS: Lisinopril 20mg tab ORAL SCH ×2 (09:45→17:52)
--- NOTE | 2020-02-25 10:08 | General Progress Note ---
Assessment/Plan Status: stable Assessment/Plan: Assessment - Initial presentation with N/V, diarrhea, and abd pain - but now improved, tolerating PO, no vomiting - lab tests and recent CT negative Recommendations - conservative follow up for now - check stool cultures - no plans for endoscopy at this time, unless symptoms escalate Subjective Allergies: Uncoded Allergies: rice, oatmeal, cod (Allergy, Intermediate, 02/12/20) patient vomits after ingestion Subjective above noted feels ok some nausea yesterday did not vomit tolerating PO Objective Last 24 Hour Vital Signs Date Time Temp Pulse Resp B/P (MAP) Pulse Ox O2 Delivery O2 Flow Rate FiO2 02/25/20 09:45 167/77 02/25/20 09:44 167/77 02/25/20 09:42 167/77 02/25/20 09:42 78 167/77 02/25/20 08:00 98.8 78 18 167/77 (107) 97 02/25/20 04:00 77 02/25/20 04:00 97.9 80 21 153/87 (109) 96 02/25/20 00:00 83 02/25/20 00:00 99.9 75 18 153/80 (104) 96 02/24/20 23:00 99.0 02/24/20 21:26 95 132/77 02/24/20 21:00 Room Air 02/24/20 20:00 96 02/24/20 20:00 101.1 95 18 132/77 (95) 99 02/24/20 17:20 145/70 02/24/20 17:20 145/70 02/24/20 16:00 98 02/24/20 16:00 98.6 88 18 145/70 (95) 98 02/24/20 14:02 133/75 02/24/20 12:00 99.0 87 20 133/75 (94) 97 02/24/20 12:00 86 Intake and Output 02/24/20 02/25/20 19:00 07:00 Intake Total 340 ml 1385 ml Output Total 45 ml Balance 295 ml 1385 ml Intake Oral 240 ml 220 ml IV Total 100 ml 1165 ml Emesis 45 ml # Voids 3 4 Laboratory Tests 02/24/20 12:47: Activated Partial Thromboplast Time 83H 02/25/20 05:50: White Blood Count 7.7, Red Blood Count 4.75, Hemoglobin 13.8, Hematocrit 42.2, Mean Corpuscular Volume 89, Mean Corpuscular Hemoglobin 29.1, Mean Corpuscular Hemoglobin Concent 32.8, Red Cell Distribution Width 12.6, Platelet Count 363, Mean Platelet Volume 6.0L, Neutrophils (%) (Auto) 51.3, Lymphocytes (%) (Auto) 39.8, Monocytes (%) (Auto) 6.5, Eosinophils (%) (Auto) 1.1, Basophils (%) (Auto ) 1.3, Sodium Level 142, Potassium Level 3.4L, Chloride Level 109H, Carbon Dioxide Level 23, Anion Gap 10, Blood Urea Nitrogen 8, Creatinine 0.9, Estimat Glomerular Filtration Rate > 60, Glucose Level 122H, Calcium Level 9.0, Magnesium Level 1.7L, Total Bilirubin 0.5, Aspartate Amino Transf (AST/SGOT) 13L , Alanine Aminotransferase (ALT/SGPT) 30, Alkaline Phosphatase 69, Pro-B-Type Natriuretic Peptide 309H, Total Protein 6.1L, Albumin 3.4, Globulin 2.7, Albumin /Globulin Ratio 1.3 Height (Feet): 5 Height (Inches): 7.00 Weight (Pounds): 222 Objective WDWN WW NCAT supple CTA RRR abd soft no edema Monica Sweeney MD Feb 25, 2020 10:08
[2020-02-25 12:00] VITALS: BP 113/59
[2020-02-25] MEDS ORDERED: METOPROLOL TART50 MG ORAL (12:59)
[2020-02-25] MEDS ORDERED: PRINIVIL20 MG ORAL (12:59)
[2020-02-25] MEDS ORDERED: ISOSORBIDE MONO30 M1 ORAL (12:59)
[2020-02-25] MEDS ORDERED: HYDROcodone/Acetamin 10/325 tab ORAL SCH (16:30)
--- NOTE | 2020-02-25 19:54 | Initial Psychiatric Evaluation ---
Psychiatry Consultation Psychiatry Consultation Chief Complaint: Nausea, Vomiting, and Diarrhea History of Present Illness: 59-year-old female with hx depression and anxiety and hypertension with diabetes , was previously admitted for nausea and vomiting. she pw depressed mood, anhedonia, hopelessness helplessness. insomnia, no si or hi. the pt started on cymbalta over the past week and doesn' t notice improvement. Allergies: Uncoded Allergies: rice, oatmeal, cod (Allergy, Intermediate, 02/12/20) patient vomits after ingestion Past Psychiatric History: mdd and anxiety no sa Medical History: htn osteomyelitis. Substance Abuse History: Negative for smoking, alcohol, or substance abuse Social/Family/Abuse/Legal Hx: Negative for smoking, alcohol, or substance abuse Medication History Scheduled Glipizide (Glipizide), 10 MG PO DAILY Isosorbide Mononitrate (Isosorbide Mononitrate Er), 30 MG ORAL DAILY Lisinopril* (Prinivil*), 20 MG ORAL BID Metoprolol Tartrate* (Metoprolol Tartrate*), 50 MG ORAL Q12HR Pantoprazole Sodium (Protonix), 40 MG GT DAILY Discontinued Medications Lisinopril (Lisinopril*), 20 MG ORAL DAILY Discontinued Reason: Medication dose changed Metformin Hcl (Metformin Hydrochloride), 1,000 GM MC BID PRN Discontinued Reason: MD discontinued med Patient History History Provided By: Patient Objective Data Height (Feet): 5 Height (Inches): 7.00 Weight (Pounds): 222 Behavior Mannerisms: good eye contact Affect: constricted Mood: depressed, anxious Speech: clear Thought Process: coherent Suicidal Ideation: not present Assessment/Plan Problem List: (1) MDD (major depressive disorder) ICD Codes: F32.9 - Major depressive disorder, single episode, unspecified SNOMED: 025892216 Assessment/Plan: Dc cymbalta start lexapro seroquel to augment antidepressant Ubaldo Fernandez MD Feb 25, 2020 19:54
[2020-02-25 20:00] VITALS: BP 125/66
[2020-02-26] VITALS (7 sets, daily range): BP systolic 122–187; BP diastolic 71–90
--- NOTE | 2020-02-26 02:30 | Cardiology Progress Note ---
Subjective DATE OF SERVICE: Feb 25, 2020 CT angio revealed bilateral pulmonary emboli Patient still with intermittent fevers. 2D Echo reveals mild-mod pulmonary hypertension with no signs of RV infarct. Objective Last 24 Hour Vital Signs Date Time Temp Pulse Resp B/P (MAP) Pulse Ox O2 Delivery O2 Flow Rate FiO2 02/26/20 00:00 99.3 74 18 122/75 (91) 02/25/20 23:44 77 02/25/20 21:00 Room Air 02/25/20 20:43 82 135/74 02/25/20 20:25 82 02/25/20 20:00 98.9 85 18 125/66 (85) 96 02/25/20 17:52 127/68 02/25/20 17:51 127/68 02/25/20 15:55 99.0 02/25/20 15:44 82 02/25/20 15:26 100.6 02/25/20 12:39 127/68 02/25/20 12:00 100.2 81 20 113/59 (77) 96 02/25/20 11:37 81 02/25/20 09:45 167/77 02/25/20 09:44 167/77 02/25/20 09:42 167/77 02/25/20 09:42 78 167/77 02/25/20 09:00 Room Air 02/25/20 08:00 98.8 78 18 167/77 (107) 97 02/25/20 07:57 95 02/25/20 04:00 77 02/25/20 04:00 97.9 80 21 153/87 (109) 96 RHYTHM: ST LUNGS: lungs clear bilaterally CARDIAC: rapid rate, tachycardia ABDOMEN: normal bowel sounds, non tender, soft EXTREMITIES: normal range of motion, No edema Laboratory Tests Test 02/25/20 05:50 02/25/20 06:03 02/25/20 11:36 02/25/20 17:28 White Blood Count 7.7 K/UL (4.8-10.8) Red Blood Count 4.75 M/UL (4.20-5.40) Hemoglobin 13.8 G/DL (12.0-16.0) Hematocrit 42.2 % (37.0-47.0) Mean Corpuscular Volume 89 FL (80-99) Mean Corpuscular Hemoglobin 29.1 PG (27.0-31.0) Mean Corpuscular Hemoglobin Concent 32.8 G/DL (32.0-36.0) Red Cell Distribution Width 12.6 % (11.6-14.8) Platelet Count 363 K/UL (150-450) Mean Platelet Volume 6.0 FL (6.5-10.1) L Neutrophils (%) (Auto) 51.3 % (45.0-75.0) Lymphocytes (%) (Auto) 39.8 % (20.0-45.0) Monocytes (%) (Auto) 6.5 % (1.0-10.0) Eosinophils (%) (Auto) 1.1 % (0.0-3.0) Basophils (%) (Auto) 1.3 % (0.0-2.0) Sodium Level 142 MMOL/L (136-145) Potassium Level 3.4 MMOL/L (3.5-5.1) L Chloride Level 109 MMOL/L (98-107) H Carbon Dioxide Level 23 MMOL/L (21-32) Anion Gap 10 mmol/L (5-15) Blood Urea Nitrogen 8 mg/dL (7-18) Creatinine 0.9 MG/DL (0.55-1.30) Estimat Glomerular Filtration Rate > 60 mL/min (>60) Glucose Level 122 MG/DL (74-106) H Calcium Level 9.0 MG/DL (8.5-10.1) Magnesium Level 1.7 MG/DL (1.8-2.4) L Total Bilirubin 0.5 MG/DL (0.2-1.0) Aspartate Amino Transf (AST/SGOT) 13 U/L (15-37) L Alanine Aminotransferase (ALT/SGPT) 30 U/L (12-78) Alkaline Phosphatase 69 U/L (46-116) Pro-B-Type Natriuretic Peptide 309 pg/mL (0-125) H Total Protein 6.1 G/DL (6.4-8.2) L Albumin 3.4 G/DL (3.4-5.0) Globulin 2.7 g/dL Albumin/Globulin Ratio 1.3 (1.0-2.7) POC Whole Blood Glucose 122 MG/DL (74-106) H 108 MG/DL (74-106) H 77 MG/DL (74-106) Test 7/16/20 17:32 02/25/20 20:44 POC Whole Blood Glucose Pending Pending Assessment/Plan Assessment/Plan Assessment: 1 Acute pulmonary embolism 2. Sinus tachycardia resolved 3. Pulmonary hypertension 4. Fevers - may be due to above, but need to consider new infection. 5. NIDDM 6. Hypertension/HHD Plan: 1. Full anticoagulation - oral rx 2. COntinue beta [place] 3. Titrate antiHTN regimen 4. Fever work up 5. Insulin regimen by sliding scale Catarino Dennis MD Feb 26, 2020 02:30
[2020-02-26] MEDS: NovoLOG Insulin Flexpen SUBQ SCH ×4 (06:28→21:00)
--- NOTE | 2020-02-26 08:02 | General Progress Note ---
Assessment/Plan Problem List: (1) Intractable vomiting ICD Codes: R11.10 - Vomiting, unspecified SNOMED: 794430717 Qualifiers: Qualified Codes: R11.2 - Nausea with vomiting, unspecified (2) Dehydration ICD Codes: E86.0 - Dehydration SNOMED: 06154433 (3) Type 2 diabetes mellitus ICD Codes: E11.9 - Type 2 diabetes mellitus without complications SNOMED: 13906063 Qualifiers: Qualified Codes: E11.69 - Type 2 diabetes mellitus with other specified complication (4) Nausea, vomiting, and diarrhea ICD Codes: R11.2 - Nausea with vomiting, unspecified; R19.7 - Diarrhea, unspecified SNOMED: 1038174 (5) Hypertension ICD Codes: I10 - Essential (primary) hypertension SNOMED: 84818673 Status: stable Assessment/Plan: ct head dc imdur tylenol for pain dc on hold Subjective ROS Limited/Unobtainable: No Constitutional: Reports: malaise, weakness HEENT: Reports: no symptoms Cardiovascular: Reports: no symptoms Respiratory: Reports: no symptoms Gastrointestinal/Abdominal: Reports: no symptoms Genitourinary: Reports: no symptoms Neurologic/Psychiatric: Reports: no symptoms Endocrine: Reports: no symptoms Hematologic/Lymphatic: Reports: no symptoms Allergies: Uncoded Allergies: rice, oatmeal, cod (Allergy, Intermediate, 02/12/20) patient vomits after ingestion All Systems: reviewed and negative except above Subjective headaches all night. no nausea or vomiting. no bleeding. Objective Last 24 Hour Vital Signs Date Time Temp Pulse Resp B/P (MAP) Pulse Ox O2 Delivery O2 Flow Rate FiO2 02/26/20 04:00 98.8 84 20 142/90 (107) 96 02/26/20 03:37 79 02/26/20 00:00 99.3 74 18 122/75 (91) 93 02/25/20 23:44 77 02/25/20 21:00 Room Air 02/25/20 20:43 82 135/74 02/25/20 20:25 82 02/25/20 20:00 98.9 85 18 125/66 (85) 96 02/25/20 17:52 127/68 02/25/20 17:51 127/68 02/25/20 15:55 99.0 02/25/20 15:44 82 02/25/20 15:26 100.6 02/25/20 12:39 127/68 02/25/20 12:00 100.2 81 20 113/59 (77) 96 02/25/20 11:37 81 02/25/20 09:45 167/77 02/25/20 09:44 167/77 02/25/20 09:42 167/77 02/25/20 09:42 78 167/77 02/25/20 09:00 Room Air 02/25/20 08:00 98.8 78 18 167/77 (107) 97 02/25/20 07:57 95 Intake and Output 02/25/20 02/26/20 19:00 07:00 Intake Total 460 ml 1720 ml Balance 460 ml 1720 ml Intake Oral 360 ml 720 ml IV Total 100 ml 1000 ml # Voids 3 4 Laboratory Tests 02/25/20 11:36: POC Whole Blood Glucose 108H 02/25/20 17:28: POC Whole Blood Glucose 77 02/25/20 17:32: POC Whole Blood Glucose [Pending] 02/25/20 20:44: POC Whole Blood Glucose [Pending] 02/26/20 05:39: POC Whole Blood Glucose [Pending] Height (Feet): 5 Height (Inches): 7.00 Weight (Pounds): 261 Objective General Appearance: WD/WN, alert Neck: supple Cardiovascular: regular rhythm Respiratory/Chest: chest wall non-tender Abdomen: normal bowel sounds, non tender, soft, no organomegaly Edema: no edema noted Arm (L), no edema noted Arm (R), no edema noted Leg (L), no edema noted Leg (R), no edema noted Pedal (L), no edema noted Pedal (R), no edema noted Generalized Rashi Villarreal MD Feb 26, 2020 08:02
[2020-02-26] MEDS: BuPROPion XL 150mg tab ORAL SCH (08:19)
[2020-02-26] MEDS: Xarelto 15mg tab ORAL SCH ×2 (08:19→17:25)
[2020-02-26] MEDS: HydrALAZINE 50mg tab ORAL SCH ×3 (08:19→17:26)
[2020-02-26] MEDS: Metoprolol Tartrate 50mg tab ORAL SCH ×2 (08:20→22:04)
[2020-02-26] MEDS: Lisinopril 20mg tab ORAL SCH ×2 (08:20→17:28)
[2020-02-26] MEDS: GlipiZIDE 5mg tab ORAL SCH (08:20)
--- NOTE | 2020-02-26 09:23 | Diagnostic Imaging Report ---
Indication: Headache Technique: Continuous helical CT scanning of the head was performed utilizing automated exposure control without intravenous contrast material. Axial and coronal reconstructions were obtained. Comparison: None CT dose: Total DLP 1045.5 mGycm; CTDI vol 53.4 mGy Findings: There is no acute intracranial hemorrhage, mass effect or cortical edema. There is no shift of the midline structures. There are small foci of encephalomalacia in the high right parietal lobes, right greater than left (axial image #21). The ventricles, cisterns and sulci are within normal limits for age. Visualized mastoid air cells and paranasal sinuses are unremarkable. No focal lesions of the bony calvarium or soft tissues of the scalp are seen. Impression: No evidence of acute intracranial hemorrhage, mass effect or cortical edema. MRI recommended for more sensitive evaluation as clinically indicated. Small foci of encephalomalacia in the bilateral high parietal lobes which may represent sequela of chronic infarct or injury. The CT scanner at [facility] is accredited by the [employer] and the scans are performed using protocols designed to limit radiation exposure to as low as reasonably achievable to attain images of sufficient resolution adequate for diagnostic evaluation.
[2020-02-26 10:00] LABS: ALANINE AMINOTRANSFERASE 21 U/L (12-78); ALBUMIN 3.3 G/DL (3.4-5.0); ALBUMIN/GLOBULIN RATIO 1.3 (1.0-2.7); ALKALINE PHOSPHATASE 72 U/L (46-116); ANION GAP 11 mmol/L (5-15); ASPARTATE AMINO TRANSFERASE 14 U/L (15-37); BILIRUBIN,TOTAL 0.6 MG/DL (0.2-1.0); BLOOD UREA NITROGEN 8 mg/dL (7-18); CALCIUM 8.3 MG/DL (8.5-10.1); CARBON DIOXIDE 22 MMOL/L (21-32); CHLORIDE 110 MMOL/L (98-107); CREATININE 0.8 MG/DL (0.55-1.30); POTASSIUM 3.4 MMOL/L (3.5-5.1); SODIUM 143 MMOL/L (136-145)
--- NOTE | 2020-02-26 13:01 | Cardiology Progress Note ---
Subjective DATE OF SERVICE: Feb 26, 2020 Patient complaining of headaches. CT angio revealed bilateral pulmonary emboli. Patient still with intermittent fevers. 2D Echo reveals mild-mod pulmonary hypertension with no signs of RV infarct. Objective Last 24 Hour Vital Signs Date Time Temp Pulse Resp B/P (MAP) Pulse Ox O2 Delivery O2 Flow Rate FiO2 02/26/20 12:00 97.5 88 16 124/71 (88) 97 02/26/20 09:29 79 138/81 (100) 02/26/20 09:00 Room Air 02/26/20 08:20 121 187/88 02/26/20 08:20 187/88 02/26/20 08:19 187/88 02/26/20 08:00 98.1 121 17 187/88 (121) 97 02/26/20 08:00 83 02/26/20 04:00 98.8 84 20 142/90 (107) 96 02/26/20 03:37 79 02/26/20 00:00 99.3 74 18 122/75 (91) 93 02/25/20 23:44 77 02/25/20 21:00 Room Air 02/25/20 20:43 82 135/74 02/25/20 20:25 82 02/25/20 20:00 98.9 85 18 125/66 (85) 96 02/25/20 17:52 127/68 02/25/20 17:51 127/68 02/25/20 15:55 99.0 02/25/20 15:44 82 02/25/20 15:26 100.6 RHYTHM: ST LUNGS: lungs clear bilaterally CARDIAC: rapid rate, tachycardia ABDOMEN: normal bowel sounds, non tender, soft EXTREMITIES: normal range of motion, No edema Laboratory Tests Test 02/25/20 17:28 02/25/20 17:32 02/25/20 20:44 02/26/20 05:39 POC Whole Blood Glucose 77 MG/DL (74-106) Pending Pending Pending Test 02/26/20 09:00 Sodium Level 143 MMOL/L (136-145) Potassium Level 3.4 MMOL/L (3.5-5.1) L Chloride Level 110 MMOL/L (98-107) H Carbon Dioxide Level 22 MMOL/L (21-32) Anion Gap 11 mmol/L (5-15) Blood Urea Nitrogen 8 mg/dL (7-18) Creatinine 0.8 MG/DL (0.55-1.30) Estimat Glomerular Filtration Rate > 60 mL/min (>60) Glucose Level 118 MG/DL (74-106) H Calcium Level 8.3 MG/DL (8.5-10.1) L Total Bilirubin 0.6 MG/DL (0.2-1.0) Aspartate Amino Transf (AST/SGOT) 14 U/L (15-37) L Alanine Aminotransferase (ALT/SGPT) 21 U/L (12-78) Alkaline Phosphatase 72 U/L (46-116) Total Protein 5.9 G/DL (6.4-8.2) L Albumin 3.3 G/DL (3.4-5.0) L Globulin 2.6 g/dL Albumin/Globulin Ratio 1.3 (1.0-2.7) Assessment/Plan Assessment/Plan Assessment: 1 Acute pulmonary embolism 2. Sinus tachycardia resolved 3. Pulmonary hypertension 4. Fevers - improving 5. NIDDM 6. Hypertension/HHD 7. Headaches Plan: 1. Full anticoagulation - oral rx 2. COntinue beta [place] 3. Titrate antiHTN regimen 4. Fever work up 5. Insulin regimen by sliding scale Catarino Dennis MD Feb 26, 2020 13:01
--- NOTE | 2020-02-26 20:04 | General Progress Note ---
Assessment/Plan Status: stable Assessment/Plan: Assessment - Initial presentation with N/V, diarrhea, and abd pain - but now improved, tolerating PO, no vomiting - lab tests and recent CT negative Recommendations - conservative follow up for now - check stool cultures - no plans for endoscopy at this time, unless symptoms escalate Subjective Allergies: Uncoded Allergies: rice, oatmeal, cod (Allergy, Intermediate, 02/12/20) patient vomits after ingestion Subjective above noted feels ok on solid food now tolerating PO Objective Last 24 Hour Vital Signs Date Time Temp Pulse Resp B/P (MAP) Pulse Ox O2 Delivery O2 Flow Rate FiO2 02/26/20 17:28 151/90 02/26/20 17:26 151/90 02/26/20 16:00 87 02/26/20 16:00 98.3 106 17 151/90 (110) 97 02/26/20 13:16 124/71 02/26/20 12:00 97.5 88 16 124/71 (88) 97 02/26/20 12:00 84 02/26/20 09:29 79 138/81 (100) 02/26/20 09:00 Room Air 02/26/20 08:20 121 187/88 02/26/20 08:20 187/88 02/26/20 08:19 187/88 02/26/20 08:00 98.1 121 17 187/88 (121) 97 02/26/20 08:00 83 02/26/20 04:00 98.8 84 20 142/90 (107) 96 02/26/20 03:37 79 02/26/20 00:00 99.3 74 18 122/75 (91) 93 02/25/20 23:44 77 02/25/20 21:00 Room Air 02/25/20 20:43 82 135/74 02/25/20 20:25 82 Intake and Output 02/25/20 02/26/20 19:00 07:00 Intake Total 460 ml 1720 ml Balance 460 ml 1720 ml Intake Oral 360 ml 720 ml IV Total 100 ml 1000 ml # Voids 3 4 Laboratory Tests 02/25/20 20:44: POC Whole Blood Glucose [Pending] 02/26/20 05:39: POC Whole Blood Glucose [Pending] 02/26/20 09:00: Sodium Level 143, Potassium Level 3.4L, Chloride Level 110H, Carbon Dioxide Level 22, Anion Gap 11, Blood Urea Nitrogen 8, Creatinine 0.8, Estimat Glomerular Filtration Rate > 60, Glucose Level 118H, Calcium Level 8.3L, Total Bilirubin 0.6, Aspartate Amino Transf (AST/SGOT) 14L, Alanine Aminotransferase ( ALT/SGPT) 21, Alkaline Phosphatase 72, Total Protein 5.9L, Albumin 3.3L, Globulin 2.6, Albumin/Globulin Ratio 1.3 02/26/20 13:08: POC Whole Blood Glucose 127H 02/26/20 16:36: POC Whole Blood Glucose 97 Height (Feet): 5 Height (Inches): 7.00 Weight (Pounds): 261 Objective WDWN WW NCAT supple CTA RRR abd soft no edema Monica Sweeney MD Feb 26, 2020 20:04
--- NOTE | 2020-02-26 23:08 | Psych Consult Progress Note ---
Psychiatry Progress Note Psychiatry Progress Note Medications Current Medications Medications (Trade) Dose Ordered Sig/Angie Route PRN Reason Start Time Stop Time Status Last Admin Dose Admin Acetaminophen (Tylenol) 650 mg Q4H PRN ORAL Mild Pain (Pain Scale 1-3) 02/22/20 22:00 03/23/20 21:59 02/26/20 17:27 Bupropion HCl (Wellbutrin XL) 150 mg DAILY ORAL 02/26/20 09:00 03/27/20 08:59 02/26/20 08:19 Clonidine HCl (Catapres Tab) 0.1 mg Q4H PRN ORAL sbp > 160 02/22/20 22:00 05/21/20 21:59 Dextrose (Dextrose 50%) 25 ml Q30M PRN IV Hypoglycemia 02/22/20 21:45 05/20/20 16:44 Dextrose (Dextrose 50%) 50 ml Q30M PRN IV Hypoglycemia 02/22/20 21:45 05/20/20 16:44 Gabapentin (Neurontin) 100 mg BEDTIME ORAL 02/24/20 21:00 03/25/20 20:59 02/26/20 22:03 Glipizide (Glucotrol) 10 mg DAILY ORAL 02/23/20 09:00 03/22/20 08:59 02/26/20 08:20 Hydralazine HCl (Apresoline) 100 mg TID ORAL 02/23/20 09:00 05/22/20 08:59 02/26/20 17:26 Insulin Aspart (NovoLOG) BEFORE MEALS AND HS SUBQ 02/23/20 06:30 05/20/20 20:59 Lisinopril (PriniviL) 20 mg BID ORAL 02/23/20 09:00 03/23/20 08:59 02/26/20 17:28 Metoclopramide HCl (Reglan) 10 mg Q8H PRN IVP Nausea & Vomiting 02/23/20 01:00 03/21/20 00:59 Metoprolol Tartrate (Lopressor) 50 mg Q12HR ORAL 02/23/20 03:00 05/23/20 02:59 02/26/20 22:04 Ondansetron HCl (Zofran) 4 mg Q4H PRN IVP Nausea & Vomiting 02/22/20 22:00 03/23/20 21:59 02/26/20 16:38 Pantoprazole (Protonix) 40 mg DAILY ORAL 02/23/20 09:00 03/22/20 08:59 02/26/20 08:19 Quetiapine Fumarate (SEROqueL) 50 mg BEDTIME ORAL 02/25/20 21:00 04/10/20 20:59 02/26/20 22:03 Rivaroxaban (Xarelto) 15 mg BID ORAL 02/24/20 18:00 03/16/20 18:01 02/26/20 17:25 Rivaroxaban (Xarelto) 20 mg DAILY ORAL 03/16/20 09:00 06/14/20 08:59 Zolpidem Tartrate (Ambien) 5 mg HSPRN PRN ORAL Insomnia 02/22/20 22:00 02/28/20 21:59 02/25/20 22:08 Neurological/Psychiatric: Reports: anxiety, depressed, emotional problems, headache, weakness Allergies: Uncoded Allergies: rice, oatmeal, cod (Allergy, Intermediate, 02/12/20) patient vomits after ingestion Objective Data Height (Feet): 5 Height (Inches): 7.00 Weight (Pounds): 261 General Appearance: WD/WN, no apparent distress, alert, alert oriented x3 Appearance: no abnormalities noted Behavior Mannerisms: good eye contact Mental Status Exam - Affect: constricted Mental Status Exam - Mood: depressed, anxious Speech: clear Mental Status Exam - Thought P: no abnormalities, logical, goal-directed, coherent Mental Status Exam - Suicidal: not present Assessment/Plan Problem List: (1) MDD (major depressive disorder) ICD Codes: F32.9 - Major depressive disorder, single episode, unspecified SNOMED: 750237434 Status: stable Assessment/Plan: lexapro seroquel to augment antidepressant Ubaldo Fernandez MD Feb 26, 2020 23:08
[2020-02-27] VITALS: BP 139/84
[2020-02-27] MEDS ORDERED: Metoprolol Tartrate 50mg tab ORAL SCH ×2 (03:00→21:00)
[2020-02-27 04:00] VITALS: BP 136/70
[2020-02-27] MEDS ORDERED: NovoLOG Insulin Flexpen SUBQ SCH ×2 (06:30→16:30)
[2020-02-27] MEDS: NovoLOG Insulin Flexpen SUBQ SCH ×4 (06:30→20:25)
[2020-02-27 08:00] VITALS: BP 145/102
[2020-02-27] MEDS: HydrALAZINE 50mg tab ORAL SCH ×3 (08:39→18:44)
[2020-02-27] MEDS: BuPROPion XL 150mg tab ORAL SCH (08:39)
[2020-02-27] MEDS: Lisinopril 20mg tab ORAL SCH ×2 (08:40→18:45)
[2020-02-27] MEDS: Metoprolol Tartrate 50mg tab ORAL SCH ×2 (08:40→20:17)
[2020-02-27] MEDS: GlipiZIDE 5mg tab ORAL SCH (08:40)
[2020-02-27] MEDS: Xarelto 15mg tab ORAL SCH ×2 (08:40→18:44)
[2020-02-27] MEDS ORDERED: HydrALAZINE 50mg tab ORAL SCH ×2 (09:00→18:00)
[2020-02-27] MEDS ORDERED: Lisinopril 20mg tab ORAL SCH ×2 (09:00→18:00)
[2020-02-27] MEDS ORDERED: Metoclopramide 10mg/2ml Inj IVP PRN ×3 (09:00→17:00)
--- NOTE | 2020-02-27 09:47 | General Progress Note ---
Assessment/Plan Problem List: (1) Intractable vomiting ICD Codes: R11.10 - Vomiting, unspecified SNOMED: 067914046 Qualifiers: Qualified Codes: R11.2 - Nausea with vomiting, unspecified (2) Dehydration ICD Codes: E86.0 - Dehydration SNOMED: 38329504 (3) Type 2 diabetes mellitus ICD Codes: E11.9 - Type 2 diabetes mellitus without complications SNOMED: 38997894 Qualifiers: Qualified Codes: E11.69 - Type 2 diabetes mellitus with other specified complication (4) Nausea, vomiting, and diarrhea ICD Codes: R11.2 - Nausea with vomiting, unspecified; R19.7 - Diarrhea, unspecified SNOMED: 0072158 (5) Hypertension ICD Codes: I10 - Essential (primary) hypertension SNOMED: 55288052 Status: stable Assessment/Plan: check covid monitor for fever wants snf. probable doesnt qualify Subjective ROS Limited/Unobtainable: No Constitutional: Reports: fever HEENT: Reports: no symptoms Cardiovascular: Reports: no symptoms Respiratory: Reports: no symptoms Gastrointestinal/Abdominal: Reports: no symptoms Genitourinary: Reports: no symptoms Neurologic/Psychiatric: Reports: no symptoms Endocrine: Reports: no symptoms Hematologic/Lymphatic: Reports: no symptoms Allergies: Uncoded Allergies: rice, oatmeal, cod (Allergy, Intermediate, 02/12/20) patient vomits after ingestion All Systems: reviewed and negative except above Subjective headaches better. +fevers. no cough. per report head ct neg Objective Last 24 Hour Vital Signs Date Time Temp Pulse Resp B/P (MAP) Pulse Ox O2 Delivery O2 Flow Rate FiO2 02/27/20 08:40 96 145/102 02/27/20 08:40 145/102 02/27/20 08:39 145/102 02/27/20 08:00 100.8 96 18 145/102 (116) 97 02/27/20 04:00 75 02/27/20 04:00 98.1 78 18 136/70 (92) 100 02/27/20 00:00 98.9 89 20 139/84 (102) 99 02/27/20 00:00 72 02/26/20 22:04 82 147/88 02/26/20 20:32 Room Air 02/26/20 20:00 98.7 97 18 147/89 (108) 99 02/26/20 20:00 88 02/26/20 17:28 151/90 02/26/20 17:26 151/90 02/26/20 16:00 87 02/26/20 16:00 98.3 106 17 151/90 (110) 97 02/26/20 13:16 124/71 02/26/20 12:00 97.5 88 16 124/71 (88) 97 02/26/20 12:00 84 Intake and Output 02/26/20 02/27/20 19:00 07:00 Intake Total 600 ml Balance 600 ml Intake Oral 600 ml # Voids 3 Laboratory Tests 02/26/20 13:08: POC Whole Blood Glucose 127H 02/26/20 16:36: POC Whole Blood Glucose 97 02/27/20 05:51: POC Whole Blood Glucose [Pending] Height (Feet): 5 Height (Inches): 7.00 Weight (Pounds): 212 Objective General Appearance: WD/WN, alert Neck: supple Cardiovascular: regular rhythm Respiratory/Chest: chest wall non-tender Abdomen: normal bowel sounds, non tender, soft, no organomegaly Edema: no edema noted Arm (L), no edema noted Arm (R), no edema noted Leg (L), no edema noted Leg (R), no edema noted Pedal (L), no edema noted Pedal (R), no edema noted Generalized Rashi Villarreal MD Feb 27, 2020 09:47
[2020-02-27 11:09] LABS: BASOPHILS % (AUTO) 0.9 % (0.0-2.0); EOSINOPHILS % (AUTO) 1.2 % (0.0-3.0); HEMATOCRIT 43.9 % (37.0-47.0); HEMOGLOBIN 14.5 G/DL (12.0-16.0); LYMPHOCYTES % (AUTO) 25.4 % (20.0-45.0); MEAN CORPUSCULAR VOLUME 89 FL (80-99); MONOCYTES % (AUTO) 4.4 % (1.0-10.0); NEUTROPHILS % (AUTO) 68.1 % (45.0-75.0); PLATELET COUNT 332 K/UL (150-450); RED BLOOD COUNT 4.94 M/UL (4.20-5.40); RED CELL DISTRIBUTION WIDTH 12.6 % (11.6-14.8); WHITE BLOOD COUNT 9.3 K/UL (4.8-10.8)
[2020-02-27 11:31] LABS: ALANINE AMINOTRANSFERASE 30 U/L (12-78); ALBUMIN 3.2 G/DL (3.4-5.0); ALBUMIN/GLOBULIN RATIO 1.1 (1.0-2.7); ALKALINE PHOSPHATASE 73 U/L (46-116); ANION GAP 10 mmol/L (5-15); ASPARTATE AMINO TRANSFERASE 17 U/L (15-37); BILIRUBIN,TOTAL 0.5 MG/DL (0.2-1.0); BLOOD UREA NITROGEN 12 mg/dL (7-18); CALCIUM 9.3 MG/DL (8.5-10.1); CARBON DIOXIDE 24 MMOL/L (21-32); CHLORIDE 109 MMOL/L (98-107); CREATININE 0.9 MG/DL (0.55-1.30); POTASSIUM 3.5 MMOL/L (3.5-5.1); SODIUM 143 MMOL/L (136-145)
[2020-02-27 12:00] VITALS: BP 121/75
--- NOTE | 2020-02-27 12:19 | General Progress Note ---
Assessment/Plan Status: stable Assessment/Plan: Assessment - Initial presentation with N/V, diarrhea, and abd pain - but now improved, tolerating PO, no vomiting - lab tests and recent CT negative Recommendations - conservative follow up for now - check stool cultures - no plans for endoscopy at this time, unless symptoms escalate Subjective Allergies: Uncoded Allergies: rice, oatmeal, cod (Allergy, Intermediate, 02/12/20) patient vomits after ingestion Subjective above noted feels ok tolerating PO solids Objective Last 24 Hour Vital Signs Date Time Temp Pulse Resp B/P (MAP) Pulse Ox O2 Delivery O2 Flow Rate FiO2 02/27/20 08:40 96 145/102 02/27/20 08:40 145/102 02/27/20 08:39 145/102 02/27/20 08:00 88 02/27/20 08:00 100.8 96 18 145/102 (116) 97 02/27/20 04:00 75 02/27/20 04:00 98.1 78 18 136/70 (92) 100 02/27/20 00:00 98.9 89 20 139/84 (102) 99 02/27/20 00:00 72 02/26/20 22:04 82 147/88 02/26/20 20:32 Room Air 02/26/20 20:00 98.7 97 18 147/89 (108) 99 02/26/20 20:00 88 02/26/20 17:28 151/90 02/26/20 17:26 151/90 02/26/20 16:00 87 02/26/20 16:00 98.3 106 17 151/90 (110) 97 02/26/20 13:16 124/71 Intake and Output 02/26/20 02/27/20 19:00 07:00 Intake Total 600 ml Balance 600 ml Intake Oral 600 ml # Voids 3 Laboratory Tests 02/26/20 13:08: POC Whole Blood Glucose 127H 02/26/20 16:36: POC Whole Blood Glucose 97 02/27/20 05:51: POC Whole Blood Glucose [Pending] 02/27/20 10:55: White Blood Count 9.3, Red Blood Count 4.94, Hemoglobin 14.5, Hematocrit 43.9, Mean Corpuscular Volume 89, Mean Corpuscular Hemoglobin 29.4, Mean Corpuscular Hemoglobin Concent 33.0, Red Cell Distribution Width 12.6, Platelet Count 332, Mean Platelet Volume 6.1L, Neutrophils (%) (Auto) 68.1, Lymphocytes (%) (Auto) 25.4, Monocytes (%) (Auto) 4.4, Eosinophils (%) (Auto) 1.2, Basophils (%) (Auto ) 0.9, Sodium Level 143, Potassium Level 3.5, Chloride Level 109H, Carbon Dioxide Level 24, Anion Gap 10, Blood Urea Nitrogen 12, Creatinine 0.9, Estimat Glomerular Filtration Rate > 60, Glucose Level 135H, Calcium Level 9.3, Total Bilirubin 0.5, Aspartate Amino Transf (AST/SGOT) 17, Alanine Aminotransferase ( ALT/SGPT) 30, Alkaline Phosphatase 73, Total Protein 6.1L, Albumin 3.2L, Globulin 2.9, Albumin/Globulin Ratio 1.1 Height (Feet): 5 Height (Inches): 7.00 Weight (Pounds): 212 Objective WDWN WW NCAT supple CTA RRR abd soft no edema Monica Sweeney MD Feb 27, 2020 12:19
[2020-02-27] MEDS ORDERED: Zolpidem 5mg tab ORAL PRN ×3 (15:14→22:00)
[2020-02-27 16:00] VITALS: BP 145/78
[2020-02-27] MEDS ORDERED: Xarelto 15mg tab ORAL SCH ×2 (18:00)
[2020-02-27] MEDS ORDERED: Docusate 250mg cap ORAL SCH ×3 (18:00)
[2020-02-27] MEDS: Docusate 250mg cap ORAL SCH (18:45)
[2020-02-27 20:00] VITALS: BP 141/91
[2020-02-28] VITALS: BP 152/96
[2020-02-28 04:00] VITALS: BP 121/96
[2020-02-28] MEDS: NovoLOG Insulin Flexpen SUBQ SCH ×4 (06:30→20:37)
--- NOTE | 2020-02-28 07:44 | General Progress Note ---
Assessment/Plan Problem List: (1) Intractable vomiting ICD Codes: R11.10 - Vomiting, unspecified SNOMED: 562920111 Qualifiers: Qualified Codes: R11.2 - Nausea with vomiting, unspecified (2) Dehydration ICD Codes: E86.0 - Dehydration SNOMED: 62321968 (3) Type 2 diabetes mellitus ICD Codes: E11.9 - Type 2 diabetes mellitus without complications SNOMED: 45275856 Qualifiers: Qualified Codes: E11.69 - Type 2 diabetes mellitus with other specified complication (4) Nausea, vomiting, and diarrhea ICD Codes: R11.2 - Nausea with vomiting, unspecified; R19.7 - Diarrhea, unspecified SNOMED: 5656328 (5) Hypertension ICD Codes: I10 - Essential (primary) hypertension SNOMED: 68241506 Status: stable Assessment/Plan: check covid monitor for fever wants snf. probable doesnt qualify Subjective ROS Limited/Unobtainable: No Constitutional: Reports: no symptoms HEENT: Reports: no symptoms Cardiovascular: Reports: no symptoms Respiratory: Reports: no symptoms Gastrointestinal/Abdominal: Reports: no symptoms Genitourinary: Reports: no symptoms Neurologic/Psychiatric: Reports: no symptoms Endocrine: Reports: no symptoms Hematologic/Lymphatic: Reports: no symptoms Allergies: Uncoded Allergies: rice, oatmeal, cod (Allergy, Intermediate, 02/12/20) patient vomits after ingestion All Systems: reviewed and negative except above Subjective minimal headaches. no fevers. no cough. per report head ct neg. covid pending Objective Last 24 Hour Vital Signs Date Time Temp Pulse Resp B/P (MAP) Pulse Ox O2 Delivery O2 Flow Rate FiO2 02/28/20 04:00 98.8 82 19 121/96 (104) 96 02/28/20 00:00 98.6 88 19 152/96 (114) 95 02/27/20 21:00 Room Air 02/27/20 20:17 90 141/91 02/27/20 20:00 99.7 90 18 141/91 (108) 96 02/27/20 18:45 145/78 02/27/20 18:44 145/78 02/27/20 16:00 98.4 93 16 145/78 (100) 96 02/27/20 12:47 121/75 02/27/20 12:00 77 02/27/20 12:00 101.3 77 20 121/75 (90) 98 02/27/20 09:10 101.3 02/27/20 09:00 Room Air 02/27/20 08:40 96 145/102 02/27/20 08:40 145/102 02/27/20 08:39 145/102 02/27/20 08:00 88 02/27/20 08:00 100.8 96 18 145/102 (116) 97 Intake and Output 02/27/20 02/28/20 19:00 07:00 Intake Total 240 ml Balance 240 ml Intake Oral 240 ml # Voids 1 1 Laboratory Tests 02/27/20 10:55: White Blood Count 9.3, Red Blood Count 4.94, Hemoglobin 14.5, Hematocrit 43.9, Mean Corpuscular Volume 89, Mean Corpuscular Hemoglobin 29.4, Mean Corpuscular Hemoglobin Concent 33.0, Red Cell Distribution Width 12.6, Platelet Count 332, Mean Platelet Volume 6.1L, Neutrophils (%) (Auto) 68.1, Lymphocytes (%) (Auto) 25.4, Monocytes (%) (Auto) 4.4, Eosinophils (%) (Auto) 1.2, Basophils (%) (Auto ) 0.9, Sodium Level 143, Potassium Level 3.5, Chloride Level 109H, Carbon Dioxide Level 24, Anion Gap 10, Blood Urea Nitrogen 12, Creatinine 0.9, Estimat Glomerular Filtration Rate > 60, Glucose Level 135H, Calcium Level 9.3, Total Bilirubin 0.5, Aspartate Amino Transf (AST/SGOT) 17, Alanine Aminotransferase ( ALT/SGPT) 30, Alkaline Phosphatase 73, Total Protein 6.1L, Albumin 3.2L, Globulin 2.9, Albumin/Globulin Ratio 1.1 02/27/20 12:00: POC Whole Blood Glucose 76 Height (Feet): 5 Height (Inches): 7.00 Weight (Pounds): 212 Objective General Appearance: WD/WN, alert Neck: supple Cardiovascular: regular rhythm Respiratory/Chest: chest wall non-tender Abdomen: normal bowel sounds, non tender, soft, no organomegaly Edema: no edema noted Arm (L), no edema noted Arm (R), no edema noted Leg (L), no edema noted Leg (R), no edema noted Pedal (L), no edema noted Pedal (R), no edema noted Generalized Rashi Villarreal MD Feb 28, 2020 07:43
[2020-02-28 08:00] VITALS: BP 142/83
[2020-02-28] MEDS: GlipiZIDE 5mg tab ORAL SCH (08:52)
[2020-02-28] MEDS: Docusate 250mg cap ORAL SCH ×2 (08:52→17:32)
[2020-02-28] MEDS: BuPROPion XL 150mg tab ORAL SCH (08:53)
[2020-02-28] MEDS: Xarelto 15mg tab ORAL SCH ×2 (08:54→17:32)
[2020-02-28] MEDS ORDERED: BuPROPion XL 150mg tab ORAL SCH ×2 (09:00)
[2020-02-28] MEDS ORDERED: GlipiZIDE 5mg tab ORAL SCH ×2 (09:00)
[2020-02-28] MEDS: HydrALAZINE 50mg tab ORAL SCH ×3 (09:08→17:32)
[2020-02-28] MEDS: Lisinopril 20mg tab ORAL SCH ×2 (09:08→17:31)
[2020-02-28] MEDS: Metoprolol Tartrate 50mg tab ORAL SCH ×2 (09:09→20:22)
[2020-02-28 12:00] VITALS: BP 121/77
[2020-02-28 14:51] LABS: BASOPHILS % (AUTO) 1.3 % (0.0-2.0); EOSINOPHILS % (AUTO) 1.4 % (0.0-3.0); HEMATOCRIT 44.8 % (37.0-47.0); HEMOGLOBIN 14.6 G/DL (12.0-16.0); LYMPHOCYTES % (AUTO) 34.5 % (20.0-45.0); MEAN CORPUSCULAR VOLUME 90 FL (80-99); MONOCYTES % (AUTO) 4.7 % (1.0-10.0); NEUTROPHILS % (AUTO) 58.2 % (45.0-75.0); PLATELET COUNT 348 K/UL (150-450); RED BLOOD COUNT 5.01 M/UL (4.20-5.40); RED CELL DISTRIBUTION WIDTH 12.9 % (11.6-14.8); WHITE BLOOD COUNT 7.8 K/UL (4.8-10.8)
[2020-02-28 15:10] LABS: ALANINE AMINOTRANSFERASE 31 U/L (12-78); ALBUMIN 3.3 G/DL (3.4-5.0); ALBUMIN/GLOBULIN RATIO 1.1 (1.0-2.7); ALKALINE PHOSPHATASE 70 U/L (46-116); ANION GAP 11 mmol/L (5-15); ASPARTATE AMINO TRANSFERASE 18 U/L (15-37); BILIRUBIN,TOTAL 0.5 MG/DL (0.2-1.0); BLOOD UREA NITROGEN 17 mg/dL (7-18); CALCIUM 9.4 MG/DL (8.5-10.1); CARBON DIOXIDE 24 MMOL/L (21-32); CHLORIDE 108 MMOL/L (98-107); POTASSIUM 3.8 MMOL/L (3.5-5.1); SODIUM 143 MMOL/L (136-145)
[2020-02-28 16:00] VITALS: BP 136/80
--- NOTE | 2020-02-28 16:17 | General Progress Note ---
Assessment/Plan Status: stable Assessment/Plan: Assessment - Initial presentation with N/V, diarrhea, and abd pain - but now improved, tolerating PO, no vomiting - lab tests and recent CT negative Recommendations - conservative follow up for now - check stool cultures - no plans for endoscopy at this time, unless symptoms escalate Subjective Allergies: Uncoded Allergies: rice, oatmeal, cod (Allergy, Intermediate, 02/12/20) patient vomits after ingestion Subjective above noted feels ok tolerating PO solids Objective Last 24 Hour Vital Signs Date Time Temp Pulse Resp B/P (MAP) Pulse Ox O2 Delivery O2 Flow Rate FiO2 02/28/20 12:55 121/77 02/28/20 12:00 98.2 79 20 121/77 (92) 96 02/28/20 09:24 98.8 02/28/20 09:09 97 142/83 02/28/20 09:08 142/83 02/28/20 09:08 142/83 02/28/20 09:00 Room Air 02/28/20 08:00 97.5 97 19 142/83 (102) 96 02/28/20 04:00 98.8 82 19 121/96 (104) 96 02/28/20 00:00 98.6 88 19 152/96 (114) 95 02/27/20 21:00 Room Air 02/27/20 20:17 90 141/91 02/27/20 20:00 99.7 90 18 141/91 (108) 96 02/27/20 18:45 145/78 02/27/20 18:44 145/78 Intake and Output 02/27/20 02/28/20 18:59 06:59 Intake Total 240 ml Balance 240 ml Intake Oral 240 ml # Voids 1 1 Laboratory Tests 02/28/20 14:00: White Blood Count 7.8, Red Blood Count 5.01, Hemoglobin 14.6, Hematocrit 44.8, Mean Corpuscular Volume 90, Mean Corpuscular Hemoglobin 29.1, Mean Corpuscular Hemoglobin Concent 32.5, Red Cell Distribution Width 12.9, Platelet Count 348, Mean Platelet Volume 5.9L, Neutrophils (%) (Auto) 58.2, Lymphocytes (%) (Auto) 34.5, Monocytes (%) (Auto) 4.7, Eosinophils (%) (Auto) 1.4, Basophils (%) (Auto ) 1.3, Sodium Level 143, Potassium Level 3.8, Chloride Level 108H, Carbon Dioxide Level 24, Anion Gap 11, Blood Urea Nitrogen 17, Creatinine 1.0, Estimat Glomerular Filtration Rate 57.1, Glucose Level 135H, Calcium Level 9.4, Total Bilirubin 0.5, Aspartate Amino Transf (AST/SGOT) 18, Alanine Aminotransferase ( ALT/SGPT) 31, Alkaline Phosphatase 70, Total Protein 6.2L, Albumin 3.3L, Globulin 2.9, Albumin/Globulin Ratio 1.1 Height (Feet): 5 Height (Inches): 7.00 Weight (Pounds): 212 Objective WDWN WW NCAT supple CTA RRR abd soft no edema Monica Sweeney MD Feb 28, 2020 16:17
[2020-02-28 20:00] VITALS: BP 115/66
[2020-02-28] MEDS ORDERED: SUMAtriptan 6mg/0.5ml Inj SUBQ SCH (20:00)
[2020-02-29] VITALS: BP 125/64
[2020-02-29 04:00] VITALS: BP 132/89
[2020-02-29] MEDS: NovoLOG Insulin Flexpen SUBQ SCH ×2 (05:33→12:18)
[2020-02-29 08:00] VITALS: BP 135/82
[2020-02-29] MEDS: HydrALAZINE 50mg tab ORAL SCH ×2 (09:04→12:19)
[2020-02-29] MEDS: BuPROPion XL 150mg tab ORAL SCH (09:05)
[2020-02-29] MEDS: GlipiZIDE 5mg tab ORAL SCH (09:05)
[2020-02-29] MEDS: Docusate 250mg cap ORAL SCH (09:05)
[2020-02-29] MEDS: Xarelto 15mg tab ORAL SCH (09:05)
[2020-02-29] MEDS: Metoprolol Tartrate 50mg tab ORAL SCH (09:05)
[2020-02-29] MEDS: Lisinopril 20mg tab ORAL SCH (09:06)
--- NOTE | 2020-02-29 09:43 | General Progress Note ---
Assessment/Plan Problem List: (1) Intractable vomiting ICD Codes: R11.10 - Vomiting, unspecified SNOMED: 009812311 Qualifiers: Qualified Codes: R11.2 - Nausea with vomiting, unspecified (2) Dehydration ICD Codes: E86.0 - Dehydration SNOMED: 22059083 (3) Type 2 diabetes mellitus ICD Codes: E11.9 - Type 2 diabetes mellitus without complications SNOMED: 45272714 Qualifiers: Qualified Codes: E11.69 - Type 2 diabetes mellitus with other specified complication (4) Nausea, vomiting, and diarrhea ICD Codes: R11.2 - Nausea with vomiting, unspecified; R19.7 - Diarrhea, unspecified SNOMED: 2866976 (5) Hypertension ICD Codes: I10 - Essential (primary) hypertension SNOMED: 61446861 Status: stable Assessment/Plan: stable for dc if she can self isolate can call and get results of covid when they are back Subjective ROS Limited/Unobtainable: No Constitutional: Reports: weakness HEENT: Reports: no symptoms Cardiovascular: Reports: no symptoms Respiratory: Reports: no symptoms Gastrointestinal/Abdominal: Reports: no symptoms Genitourinary: Reports: no symptoms Neurologic/Psychiatric: Reports: no symptoms Endocrine: Reports: no symptoms Hematologic/Lymphatic: Reports: no symptoms Allergies: Uncoded Allergies: rice, oatmeal, cod (Allergy, Intermediate, 02/12/20) patient vomits after ingestion All Systems: reviewed and negative except above Subjective headache better after imitrex. Objective Last 24 Hour Vital Signs Date Time Temp Pulse Resp B/P (MAP) Pulse Ox O2 Delivery O2 Flow Rate FiO2 02/29/20 09:06 135/82 02/29/20 09:05 117 135/82 02/29/20 09:04 135/82 02/29/20 09:00 Room Air 02/29/20 08:00 97.6 96 18 135/82 (99) 96 02/29/20 04:00 98.4 97 19 132/89 (103) 96 02/29/20 00:00 97.6 90 19 125/64 (84) 95 02/28/20 21:00 Room Air 02/28/20 20:22 92 120/66 02/28/20 20:00 98.2 92 18 115/66 (82) 66 02/28/20 17:32 136/80 02/28/20 17:31 136/80 7/19/20 16:00 98.2 88 18 136/80 (98) 96 02/28/20 12:55 121/77 02/28/20 12:00 98.2 79 20 121/77 (92) 96 Intake and Output 02/28/20 02/29/20 19:00 07:00 Intake Total 200 ml 500 ml Balance 200 ml 500 ml Intake Oral 200 ml 500 ml # Voids 2 3 Laboratory Tests 02/28/20 14:00: White Blood Count 7.8, Red Blood Count 5.01, Hemoglobin 14.6, Hematocrit 44.8, Mean Corpuscular Volume 90, Mean Corpuscular Hemoglobin 29.1, Mean Corpuscular Hemoglobin Concent 32.5, Red Cell Distribution Width 12.9, Platelet Count 348, Mean Platelet Volume 5.9L, Neutrophils (%) (Auto) 58.2, Lymphocytes (%) (Auto) 34.5, Monocytes (%) (Auto) 4.7, Eosinophils (%) (Auto) 1.4, Basophils (%) (Auto ) 1.3, Sodium Level 143, Potassium Level 3.8, Chloride Level 108H, Carbon Dioxide Level 24, Anion Gap 11, Blood Urea Nitrogen 17, Creatinine 1.0, Estimat Glomerular Filtration Rate 57.1, Glucose Level 135H, Calcium Level 9.4, Total Bilirubin 0.5, Aspartate Amino Transf (AST/SGOT) 18, Alanine Aminotransferase ( ALT/SGPT) 31, Alkaline Phosphatase 70, Total Protein 6.2L, Albumin 3.3L, Globulin 2.9, Albumin/Globulin Ratio 1.1 Height (Feet): 5 Height (Inches): 7.00 Weight (Pounds): 211 Objective General Appearance: WD/WN, alert Neck: supple Cardiovascular: regular rhythm Respiratory/Chest: chest wall non-tender Abdomen: normal bowel sounds, non tender, soft, no organomegaly Edema: no edema noted Arm (L), no edema noted Arm (R), no edema noted Leg (L), no edema noted Leg (R), no edema noted Pedal (L), no edema noted Pedal (R), no edema noted Generalized Rashi Villarreal MD Feb 29, 2020 09:43
[2020-02-29 12:00] VITALS: BP 105/66
[2020-02-29 12:19] VITALS: BP 105/66
[2020-02-29] MEDS ORDERED: XARELTO10 MG ORAL ×2 (14:56→14:57)
--- NOTE | 2020-02-29 23:51 | Psych Consult Progress Note ---
Psychiatry Progress Note Psychiatry Progress Note Neurological/Psychiatric: Reports: anxiety, depressed Allergies: Uncoded Allergies: rice, oatmeal, cod (Allergy, Intermediate, 02/12/20) patient vomits after ingestion Objective Data Height (Feet): 5 Height (Inches): 7.00 Weight (Pounds): 211 General Appearance: WD/WN, no apparent distress, alert, alert oriented x3 Behavior Mannerisms: good eye contact Mental Status Exam - Affect: blunted Mental Status Exam - Mood: depressed, anxious Speech: clear Mental Status Exam - Suicidal: not present Assessment/Plan Problem List: (1) MDD (major depressive disorder) ICD Codes: F32.9 - Major depressive disorder, single episode, unspecified SNOMED: 155946677 Status: stable Assessment/Plan: lexapro seroquel to augment antidepressant Ubaldo Fernandez MD Feb 29, 2020 23:51
--- NOTE | 2020-03-01 08:30 | Discharge Summary ---
Discharge Summary Discharge Summary _ DATE OF ADMISSION: 02/20/2020 DATE OF DISCHARGE: 02/29/2020 DISCHARGED BY: Dr. Villarreal REASON FOR ADMISSION: 59 years old female with past medical history of hypertension and recently diagnosed diabetes, previously admitted for nausea and vomiting, presented with similar symptoms of recurrent nausea and vomiting of unclear etiology , believed to be possibly secondary to persistent gastroenteritis versus e diabetic gastroparesis. Upon evaluation blood pressure was elevated 156/104 , otherwise patient was afebrile , and pulse oximetry was stable on room air. Laboratory work-up revealed no leukocytosis, hemoglobin 15.2,, hematocrit 45.6 platelet 405. Stable electrolytes. BUN 13, creatinine 1.0. Glucose 155. Urinalysis revealed no evidence of urinary tract infection, +2 glucose, +2 protein . Troponin 0.002 . EKG revealed sinus rhythm with prolonged QT interval. Chest x-ray revealed no acute cardiopulmonary pathology . In emergency department patient received analgesic , antiemetic, IV fluids and admitted for further management. CONSULTANTS: obgyn hospitalist physician Dr. Dennis GI specialist Dr. Sweeney psychiatrist HOSPITAL COURSE: Patient admitted and started on the IV fluids. Patient initially was kept n.p.o. IV antiemetic provided: Reglan was given [id number] and Zofran as needed. Blood sugar was managed with sliding scale of insulin. Small bowel x-ray revealed normal endings, delete no evidence of obstruction, mucosal abnormality or filling defect. Patient slowly started on liquid diet as tolerated. GI specialist recommended conservative management with no plans for endoscopy, unless symptoms escalate. Patient started to eat and was able to tolerate oral fluids. Diet was advanced as tolerated, no further vomiting. Lab tests and recent CT scan were negative. While in the hospital patient developed tachycardia and shortness of breath. CT scan of the chest and thorax revealed bilateral segmental pulmonary emboli within the lower lobe pulmonary artery. No definite pulmonary infarct or evidence of right heart strain. Cardiology consult was requested. Patient started on heparin drip. Supplemental oxygen provided and titrated to keep pulse oximetry above 92%. Pulmonary toilet provided. Patient started on beta blockage . Second troponin elevated 0.071. Patient started on aspirin and beta blockage. Cardiac monitoring continued. Second troponin elevated 0.355 . Sinus tachycardia resolved. Patient was transitioned to oral anticoagulation prior to discharge. Antihypertensive regimen was advanced to keep blood pressure under control. Blood pressure was managed with multiply antihypertensive medications, including beta-[place], DAQUAN inhibitor and hydralazine. Blood sugar was managed with glipizide and sliding scale of insulin. GI prophylaxis provided. CT of the head which revealed no evidence of acute intracranial hemorrhage , mass-effect or cortical edema. Psychiatrist seen and evaluated patient. Per psychiatrist patient had major depressive disorder. Psychiatric medication regimen was optimized. Nausea and vomiting resolved. Patient was able to tolerate diet. Patient was stable for discharge home on oral Xarelto and new updated antihypertensive regimen. FINAL DIAGNOSES: Pulmonary embolism Sinus tachycardia - resolved Pulmonary hypertension Hypertensive heart disease Intractable vomiting Dehydration Type 2 diabetes mellitus Major depressive disorder DISCHARGE MEDICATIONS: See Medication Reconciliation list. DISCHARGE INSTRUCTIONS: Patient was discharged home. Follow-up with a primary care provider in 1 week. I have been assigned to dictate discharge summary for this account. I was not involved in the patient's management. Sarah Barrios NP Mar 01, 2020 08:30
[2020-03-16] MEDS ORDERED: Xarelto 10mg tab ORAL SCH ×4 (09:00)
[2020-03-17] MEDS ORDERED: Xarelto 10mg tab ORAL SCH (09:00)
== END 2020-02-29 16:20 | disposition home or self-care (01) | DRG 134 ==
LOC: EMR 14:10 → 4E 15:00 → EDBEDREQ 15:30 → 4E 18:53 → 2E 02-22 20:20 → 4E 02-27 15:30
DX: I26.99 Other pulmonary embolism without acute cor pulmonale (principal); K29.70 Gastritis, unspecified, without bleeding; E86.0 Dehydration; I11.9 Hypertensive heart disease without heart failure; F32.9 Major depressive disorder, single episode, unspecified; K76.0 Fatty (change of) liver, not elsewhere classified; R00.0 Tachycardia, unspecified; I51.3 Intracardiac thrombosis, not elsewhere classified; R19.7 Diarrhea, unspecified; E11.9 Type 2 diabetes mellitus without complications; I27.20 Pulmonary hypertension, unspecified
CPT/HCPCS: 36415; 70450; 71045; 71275; 74250; 80053; 81003; 82728; 82962; 83615; 83690; 83735; 83880; 84443; 84484; 85025; 85610; 85730; 86140; 87081; 93005; 93306; 96361; 96374; 96375; 99285; J1815; J2405; J2765; J7030; J8499